=== PATIENT | female | born 1935 | race Caucasian/White ===

== ENCOUNTER 2017-09-18 09:30 | Observation (INO) | payer MEDICARE ==
[2017-09-18 09:31] VITALS: BMI 24.7
--- NOTE | 2017-09-18 09:59 | ED PDOC ---
Arrival/HPI - General Chief Complaint: Trauma Time Seen by Provider: 09/18/17 09:58 Historian: Patient - History of Present Illness Narrative History of Present Illness (Text): 09/18/17 09:59 This 82 year old female, whose past medical history includes diabetes, cholecystectomy and rheumatoid arthritis, presents to the emergency room, accompanied by niece, complaining of generalized weakness, AKBAR, and neck pain x 8 days. Patient stated she tripped and fell down causing her to hit back part of head. Patient feels lack of energy with generalized weakness. Patient denies loc, sob, cp, abdominal pain, or urinary symptoms. Time/Duration: Other (see hpi) Context: Home Past Medical History - Provider Review Nursing Documentation Reviewed: Yes - Infectious Disease Hx of Infectious Diseases: None - Tetanus Immunization Tetanus Immunization: Unknown - Cardiac Hx Cardiac Disorders: No - Pulmonary Hx Respiratory Disorders: No - Neurological Hx Neurological Disorder: No - HEENT Hx HEENT Disorder: No - Renal Hx Renal Disorder: No - Endocrine/Metabolic Hx Endocrine Disorders: Yes Hx Diabetes Mellitus Type 2: Yes - Hematological/Oncological Hx Blood Disorders: No - Integumentary Hx Dermatological Disorder: No - Musculoskeletal/Rheumatological Hx Musculoskeletal Disorders: Yes Hx Falls: Yes - Gastrointestinal Hx Gastrointestinal Disorders: No - Genitourinary/Gynecological Hx Genitourinary Disorders: No - Psychiatric Hx Psychophysiologic Disorder: No Hx Substance Use: No - Surgical History Hx Cholecystectomy: Yes (1 year ago) Hx Musculoskeletal Surgery: Yes (right side hip replacement) Other/Comment: 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 - Anesthesia Hx Anesthesia: Yes Hx Anesthesia Reactions: No Hx Malignant Hyperthermia: No - Suicidal Assessment Feels Threatened In Home Enviroment: No Family/Social History - Physician Review Nursing Documentation Reviewed: Yes Family/Social History: Other (noncontributory) Smoking Status: Never Smoked Hx Alcohol Use: No Hx Substance Use: No Hx Substance Use Treatment: No Allergies/Home Meds Allergies/Adverse Reactions: Allergies Penicillins Adverse Reaction (Verified 09/18/17 09:36) RASH Home Medications: Home Meds Medication Instructions Recorded Confirmed Metformin Hydrochloride [Metformin] 500 mg PO DAILY 03/31/12 09/18/17 Aspirin [Aspirin] 81 mg PO DAILY 04/24/13 09/18/17 Leflunomide [Leflunomide] 20 mg PO DAILY 04/24/13 09/18/17 Review of Systems - Review of Systems Constitutional: Normal. absent: Fatigue, Weight Change, Fevers Eyes: Normal ENT: Normal Respiratory: Normal Cardiovascular: Normal Gastrointestinal: Normal Genitourinary Female: Normal Musculoskeletal: Normal Skin: Normal Neurological: Headache Endocrine: Normal Hemo/Lymphatic: Normal Psychiatric: Normal Physical Exam Vital Signs Temp Pulse Resp BP Pulse Ox 09/18/17 13:45 71 18 141/64 98 09/18/17 11:50 76 18 145/69 98 09/18/17 09:37 97.8 F 80 16 147/71 99 Temperature: Afebrile Blood Pressure: Normal Pulse: Regular Respiratory Rate: Normal Appearance: Positive for: Well-Appearing, Non-Toxic, Comfortable Pain Distress: None - Systems Exam Head: Present: Atraumatic, Normocephalic Pupils: Present: PERRL Extroacular Muscles: Present: EOMI Conjunctiva: Present: Normal Mouth: Present: Moist Mucous Membranes Neck: Present: Normal Range of Motion Respiratory/Chest: Present: Clear to Auscultation, Good Air Exchange. No: Respiratory Distress, Accessory Muscle Use Cardiovascular: Present: Regular Rate and Rhythm, Normal S1, S2. No: Murmurs Abdomen: Present: Normal Bowel Sounds. No: Tenderness, Distention, Peritoneal Signs Back: Present: Normal Inspection Upper Extremity: Present: Normal Inspection. No: Cyanosis, Edema Lower Extremity: Present: Normal Inspection. No: Edema Neurological: Present: GCS=15, CN II-XII Intact, Speech Normal Skin: Present: Warm, Dry, Normal Color. No: Rashes Psychiatric: Present: Alert, Oriented x 3, Normal Insight, Normal Concentration Medical Decision Making ED Course and Treatment: 09/18/17 14:[address] Roth regarding patient c/o generalized weakness, AKBAR and recent fall. Patient had fallen down on the floor, but unsure due to generalized weakness, or mechanical fall. Dr. Zhong agreed with plan for observation. I told him that I had spoke with Dr. Edmondson, who mention that Dr. Decker was neurologist Re-evaluation Time: 14:31 Reassessment Condition: Re-examined, Improving,but remains with symptoms - Lab Interpretations Lab Results: 09/18/17 10:50 09/18/17 09:59 Lab Results 09/18/17 13:18: Urine Color Yellow, Urine Appearance Clear, Urine pH 5.5, Ur Specific [place] >= 1.030, Urine Protein Trace H, Urine Glucose (UA) Negative, Urine Ketones Trace H, Urine Blood Negative, Urine Nitrate Negative, Urine Bilirubin Negative, Urine Urobilinogen 0.2, Ur Leukocyte Esterase Trace H, Urine RBC 0 - 2, Urine WBC 2 - 5, Ur Epithelial Cells 4 - 5, Amorphous Sediment Few, Urine Bacteria Many 09/18/17 10:50: pO2 36, VBG pH 7.35, VBG pCO2 53.0, VBG HCO3 29.3 H, VBG Total CO2 30.9 H, VBG O2 Sat (Calc) 68.1 H, VBG Base Excess 2.5 H, VBG Potassium 4.0, Glucose 137 H, Lactate 1.4, FiO2 21.0, Sodium 141.0, Chloride 108.0 H, Venous Blood Potassium 4.0 09/18/17 10:50: PT 12.2, INR 1.06, APTT 29.5 09/18/17 10:50: WBC 8.2 D, RBC 4.29, Hgb 12.0, Hct 37.0, MCV 86.2, MCH 28.0, MCHC 32.4, RDW 14.3, Plt Count 374, MPV 8.9, Gran % 60.3, Lymph % (Auto) 27.4, [place] % (Auto) 9.9 H, Eos % (Auto) 2.2, Baso % (Auto) 0.2, Gran # 4.92, Lymph # ( Auto) 2.2, [place] # (Auto) 0.8 H, Eos # (Auto) 0.2, Baso # (Auto) 0.02 09/18/17 09:59: Sodium 145, Potassium 4.0, Chloride 109 H, Carbon Dioxide 27, Anion Gap 13, BUN 15, Creatinine 0.6 L, Est GFR ( Amer) > 60, Est GFR ( Non-Af Amer) > 60, Random Glucose 141 H, Calcium 9.8, Total Bilirubin 0.4, AST 32, ALT 36, Alkaline Phosphatase 75, Lactate Dehydrogenase 374, Total Creatine Kinase 29 L, Troponin I < 0.01, NT-Pro-B Natriuret Pep 438, Total Protein 7.3, Albumin 3.7, Globulin 3.6, Albumin/Globulin Ratio 1.0 L I have reviewed the lab results: Yes Interpretation: Abnormal lab values - RAD Interpretation Narrative RAD Interpretations (Text): 09/18/17 11:41 PROCEDURE: CT HEAD WITHOUT CONTRAST. FINDINGS: HEMORRHAGE: No intracranial hemorrhage. BRAIN: No mass effect or edema. Severe chronic microvascular changes are seen VENTRICLES: Mild ventriculomegaly CALVARIUM: Unremarkable. PARANASAL SINUSES: Unremarkable as visualized. No significant inflammatory changes. MASTOID AIR CELLS: Unremarkable as visualized. No inflammatory changes. OTHER FINDINGS: None. IMPRESSION: No acute intracranial findings 09/18/17 12:34 PROCEDURE: CT Cervical Spine without contrast FINDINGS: VERTEBRAE: There is normal alignment of the cervical vertebral bodies. There is straightening of the cervical spine with loss of normal cervical lordosis. Vertebral height is normal. There is no acute fracture or traumatic anterior listhesis. The craniocervical junction is normal. The atlantoaxial joint is normal. DISCS/SPINAL CANAL/NEURAL FORAMINA: There are multilevel degenerative changes with anterior osteophytes, reduced disc heights and multilevel facet arthropathy, worse at C4-5 where there is also focal posterior longitudinal ligament ossification with mild spinal canal stenosis. PARASPINAL SOFT TISSUES: The paraspinous soft tissues are normal. OTHER FINDINGS: No apical pneumothorax. IMPRESSION: No acute fracture or traumatic anterior listhesis. Multilevel degenerative disc disease, worse at C4-5 with mild spinal canal stenosis. Straightening of the cervical spine may be positional or related to muscle spasm. Radiology Orders: 09/18/17 10:00 CHEST PORTABLE [RAD] Stat 09/18/17 10:01 CERVICAL SPINE W/O CONTRAST [CT] Stat HEAD W/O CONTRAST [CT] Stat - EKG Interpretation Interpreted by ED Physician: Yes (NSR @ [address] changes) Type: 12 lead EKG Comparison: No previous EKG avail. - Medication Orders Current Medication Orders: Discontinued Medications Sodium Chloride (Sodium Chloride 0.9%) 500 mls @ 999 mls/hr IV .Q31M STA Stop: 09/18/17 10:30 Last Admin: 09/18/17 11:27 Dose: 999 mls/hr eMAR Start Stop Document 09/18/17 11:27 [email or web address] (Rec: 09/18/17 11:27 [email or web address] [id number]) Intravenous Solution Start Date 09/18/17 Start Time 11:27 End Date 09/18/17 Sodium Chloride (Sodium Chloride 0.9%) 500 mls @ 999 mls/hr IV .Q31M STA Stop: 09/18/17 12:22 Last Admin: 09/18/17 13:31 Dose: 999 mls/hr eMAR Start Stop Document 09/18/17 13:31 [email or web address] (Rec: 09/18/17 13:32 [email or web address] [id number]) Intravenous Solution Start Date 09/18/17 Start Time 13:32 End Date 09/18/17 Disposition/Present on Arrival - Present on Arrival Any Indicators Present on Arrival: No History of DVT/PE: No History of Uncontrolled Diabetes: No Urinary Catheter: No History of Decub. Ulcer: No History Surgical Site Infection Following: None - Disposition Have Diagnosis and Disposition been Completed?: Yes Diagnosis: Generalized weakness, Headache, Fall Disposition: HOSPITALIZED Disposition Time: 14:34 Patient Plan: Observation Patient Problems: Current Active Problems Problem Status Onset Fall Acute Generalized weakness Acute Headache Acute Condition: STABLE Discharge Instructions (ExitCare): Weakness (ED) Referrals: Kobe Edmondson MD [Primary Care Provider] - Follow up with primary Forms: [employer] ([place])
[2017-09-18] MEDS ORDERED: Sodium Chloride 0.9% 500 ML IV STA ×2 (10:00→11:52)
[2017-09-18 11:07] LABS: BASO # 0.02 K/mm3 (0.0-2.0); BASO % 0.2 % (0.0-3.0); EOS # 0.2 (0.0-0.7); EOS % 2.2 % (1.5-5.0); GRAN # 4.92 (1.4-6.5); GRAN % 60.3 % (50.0-68.0); LYMPH # 2.2 (1.2-3.4); LYMPH % 27.4 % (22.0-35.0); MEAN CELL VOLUME 86.2 fl (80.0-105.0); MEAN CORPUSCULAR HGB CONC 32.4 g/dl (31.0-37.0); MEAN PLATELET VOLUME 8.9 fl (7.0-11.0); MONO # 0.8 (0.1-0.6); MONO % 9.9 % (1.0-6.0); RBC 4.29 10^6/uL (3.5-6.1); RED CELL DISTRIBUTION WIDTH 14.3 % (11.5-14.5); WHITE BLOOD COUNT 8.2 10^3/ul (4.5-11.0)
[2017-09-18 11:09] LABS: VENOUS BLOOD GAS BASE EXCESS 2.5 mmol/L (0.0-2.0); VENOUS BLOOD GAS PO2 36 mm/Hg (30-55); VENOUS BLOOD PH 7.35 (7.32-7.43)
--- NOTE | 2017-09-18 11:10 | RAD ---
HISTORY: pre syncope COMPARISON: 04/24/2013. FINDINGS: LUNGS: The lungs are well inflated and clear. PLEURA: No significant pleural effusion identified, no pneumothorax apparent. CARDIOVASCULAR: Normal. OSSEOUS STRUCTURES: No significant abnormalities. VISUALIZED UPPER ABDOMEN: Normal. OTHER FINDINGS: None. IMPRESSION: No active pulmonary disease.
--- NOTE | 2017-09-18 11:18 | CT ---
PROCEDURE: CT HEAD WITHOUT CONTRAST. HISTORY: AKBAR s/p fall COMPARISON: 04/24/2013 TECHNIQUE: Axial computed tomography images were obtained through the head/brain without intravenous contrast. Radiation dose: Total exam DLP = 872 mGy-cm. This CT exam was performed using one or more of the following dose reduction techniques: Automated exposure control, adjustment of the mA and/or kV according to patient size, and/or use of iterative reconstruction technique. FINDINGS: HEMORRHAGE: No intracranial hemorrhage. BRAIN: No mass effect or edema. Severe chronic microvascular changes are seen VENTRICLES: Mild ventriculomegaly CALVARIUM: Unremarkable. PARANASAL SINUSES: Unremarkable as visualized. No significant inflammatory changes. MASTOID AIR CELLS: Unremarkable as visualized. No inflammatory changes. OTHER FINDINGS: None. IMPRESSION: No acute intracranial findings
[2017-09-18 11:21] LABS: ALBUMIN 3.7 g/dL (3.0-4.8); ALT/SGPT 36 U/L (7-56); AST/SGOT 32 U/L (14-36); BLOOD UREA NITROGEN 15 mg/dL (7-21); CALCIUM 9.8 mg/dL (8.4-10.5); GFR AFRICAN-AMERICAN > 60; GFR NON-AFRICAN AMERICAN > 60
[2017-09-18 11:32] LABS: B-TYPE NATRIURETIC PEPTIDE 438 pg/mL (0-450); TROPONIN I < 0.01 ng/mL
[2017-09-18 11:50] LABS: INR 1.06 (0.93-1.08); PARTIAL THROMBOPLASTIN TIME 29.5 Seconds (25.1-36.5); PROTHROMBIN TIME 12.2 SECONDS (9.4-12.5)
--- NOTE | 2017-09-18 12:14 | CT ---
PROCEDURE: CT Cervical Spine without contrast HISTORY: Fall COMPARISON: None available. TECHNIQUE: Axial computed tomography images were obtained of the cervical spine without the use of intravenous contrast. Coronal and sagittal reformatted images were created and reviewed. Radiation dose: Total exam DLP = 382.97 mGy-cm. This CT exam was performed using one or more of the following dose reduction techniques: Automated exposure control, adjustment of the mA and/or kV according to patient size, and/or use of iterative reconstruction technique. FINDINGS: VERTEBRAE: There is normal alignment of the cervical vertebral bodies. There is straightening of the cervical spine with loss of normal cervical lordosis. Vertebral height is normal. There is no acute fracture or traumatic anterior listhesis. The craniocervical junction is normal. The atlantoaxial joint is normal. DISCS/SPINAL CANAL/NEURAL FORAMINA: There are multilevel degenerative changes with anterior osteophytes, reduced disc heights and multilevel facet arthropathy, worse at C4-5 where there is also focal posterior longitudinal ligament ossification with mild spinal canal stenosis. PARASPINAL SOFT TISSUES: The paraspinous soft tissues are normal. OTHER FINDINGS: No apical pneumothorax. IMPRESSION: No acute fracture or traumatic anterior listhesis. Multilevel degenerative disc disease, worse at C4-5 with mild spinal canal stenosis. Straightening of the cervical spine may be positional or related to muscle spasm.
[2017-09-18 13:27] LABS: PH,URINE 5.5 (4.7-8.0); URINE APPEARANCE CLEAR (CLEAR); URINE BILIRUBIN NEGATIVE (NEGATIVE); URINE BLOOD NEGATIVE (NEGATIVE); URINE COLOR YELLOW (YELLOW); URINE GLUCOSE (UA) NEGATIVE (NEGATIVE); URINE LEUKOCYTE ESTERASE TRACE Leu/uL (NEGATIVE); URINE PROTEIN TRACE mg/dL (<30 mg/dL); URINE UROBILINOGEN 0.2 E.U./dL (<1 E.U./dL)
[2017-09-18 13:32] LABS: URINE AMORPHOUS SEDIMENT FEW; URINE BACTERIA MANY (NEG); URINE RBC 0 - 2 /hpf (0-2)
[2017-09-18] MEDS ORDERED: Pneumococcal 23-Valent Vaccine IM ONE (19:30)
[2017-09-18] MEDS ORDERED: Influenza Vaccine 60 mcg/0.5 mL SYR (4YR UP) IM ONE (19:30)
--- NOTE | 2017-09-18 20:51 | CON ---
DATE: HISTORY OF PRESENT ILLNESS: This is an 82-year-old female with past medical history of diabetes, rheumatoid arthritis and status post cholecystectomy. Came with the complaint of generalized weakness, headache, neck pain for 8 days. The patient states that the patient tripped and fell and hit her back of her head and has lack of energy. Came to the hospital with past medical history of diabetes, cholecystectomy, rheumatoid arthritis. ALLERGY: TO PENICILLINS. HOME MEDICATION: Metformin, aspirin. PHYSICAL EXAMINATION: VITAL SIGNS: Blood pressure 47/71. HEENT: Normocephalic, atraumatic. NECK: Supple. NEUROLOGIC: Alert, awake, oriented x3. No aphasia. Cranial nerves II through XII were tested. Pupils reactive. EOM intact. Visual field full. No facial asymmetry. Tongue midline. Motor examination: Moves all the extremity equally. Tone normal. Deep tendon reflexes 1+. Both plantars downgoing. Sensory appears intact. Cerebellar, gait deferred. IMPRESSION: Headache and generalized weakness. Workup in progress and CAT scan of the head was negative. Continue present management. We will followup. CT of the cervical spine was done. No fracture. Multiple degenerative disk disease, C4, C5 and muscle spasms. Continue present management. We will follow up. Jayme Layne MD
[2017-09-18] MEDS: Insulin Reg-LOW-Coverage SC SCH (21:24)
--- NOTE | 2017-09-18 22:01 | CARD ---
APPROVED REPORT EKG Measurement Heart [id number] 190P-4 [id number] <Conclusion> Normal sinus rhythm Minimal voltage criteria for LVH, may be normal variant Borderline ECG
--- NOTE | 2017-09-18 22:54 | CP.PCM.PN ---
Subjective - Date & Time of Evaluation Date of Evaluation: 09/18/17 Time of Evaluation: 22:32 - Subjective Subjective: Patient was seen at bedside. She complained of pain in right side of neck right below mastoid area. Has no other complaints. States that she fell past Monday, has pain in neck since then. No tingling, no numbness in right upper extremity. No pains anywhere else in the body. States that Advil works better with her. Medical record was reviewed. This 82 year old white woman is admitted with generalized weakness, headache, neck pain of 8 days duration. Has PMH of DM II, Chronic headache, osteoarthritis,right hip surgery, cholecystectomy,allergy to penicillin. Objective - Vital Signs/Intake and Output Vital Signs (last 24 hours): Temp Pulse Resp BP Pulse Ox 97.6 F 60 18 151/66 H 95 09/18/17 20:51 09/18/17 20:51 09/18/17 20:51 09/18/17 20:51 09/18/17 17:18 Intake and Output: 09/18/17 09/19/17 18:59 06:59 Intake Total 540 Balance 540 - Medications Medications: Current Medications Aspirin (Ecotrin) 81 mg PO DAILY [facility] Last Admin: 09/18/17 17:42 Dose: 81 mg Insulin Human Regular (Humulin R Low) 0 units SC ACHS TASHIA PRN Reason: Protocol Last Admin: 09/18/17 21:24 Dose: Not Given - Labs Labs: PT 12.2 SECONDS (9.4-12.5) 09/18/17 10:50 INR 1.06 (0.93-1.08) 09/18/17 10:50 APTT 29.5 Seconds (25.1-36.5) 09/18/17 10:50 Most Recent Lab Values WBC 8.2 10^3/ul (4.5-11.0) D 09/18/17 10:50 RBC 4.29 10^6/uL (3.5-6.1) 09/18/17 10:50 Hgb 12.0 g/dL (12.0-16.0) 09/18/17 10:50 Hct 37.0 % (36.0-48.0) 09/18/17 10:50 MCV 86.2 fl (80.0-105.0) 09/18/17 10:50 MCH 28.0 pg (25.0-35.0) 09/18/17 10:50 MCHC 32.4 g/dl (31.0-37.0) 09/18/17 10:50 RDW 14.3 % (11.5-14.5) 09/18/17 10:50 Plt Count 374 10^3/uL (120.0-450.0) 09/18/17 10:50 MPV 8.9 fl (7.0-11.0) 09/18/17 10:50 Gran % 60.3 % (50.0-68.0) 09/18/17 10:50 Lymph % (Auto) 27.4 % (22.0-35.0) 09/18/17 10:50 [place] % (Auto) 9.9 % (1.0-6.0) H 09/18/17 10:50 Eos % (Auto) 2.2 % (1.5-5.0) 09/18/17 10:50 Baso % (Auto) 0.2 % (0.0-3.0) 09/18/17 10:50 Gran # 4.92 (1.4-6.5) 09/18/17 10:50 Lymph # (Auto) 2.2 (1.2-3.4) 09/18/17 10:50 [place] # (Auto) 0.8 (0.1-0.6) H 09/18/17 10:50 Eos # (Auto) 0.2 (0.0-0.7) 09/18/17 10:50 Baso # (Auto) 0.02 K/mm3 (0.0-2.0) 09/18/17 10:50 PT 12.2 SECONDS (9.4-12.5) 09/18/17 10:50 INR 1.06 (0.93-1.08) 09/18/17 10:50 APTT 29.5 Seconds (25.1-36.5) 09/18/17 10:50 pO2 36 mm/Hg (30-55) 09/18/17 10:50 VBG pH 7.35 (7.32-7.43) 09/18/17 10:50 VBG pCO2 53.0 (40-60) 09/18/17 10:50 VBG HCO3 29.3 mmol/l (21-28) H 09/18/17 10:50 VBG Total CO2 30.9 mmol.L (22-28) H 09/18/17 10:50 VBG O2 Sat (Calc) 68.1 % (40-65) H 09/18/17 10:50 VBG Base Excess 2.5 mmol/L (0.0-2.0) H 09/18/17 10:50 VBG Potassium 4.0 mmol/L (3.6-5.2) 09/18/17 10:50 Sodium 141.0 mmol/L (132-148) 09/18/17 10:50 Chloride 108.0 mmol/L (98-107) H 09/18/17 10:50 Glucose 137 mg/dl (65-105) H 09/18/17 10:50 Lactate 1.4 mmol/L (0.7-2.1) 09/18/17 10:50 FiO2 21.0 % 09/18/17 10:50 Sodium 145 mmol/L (132-148) 09/18/17 09:59 Potassium 4.0 mmol/L (3.6-5.0) 09/18/17 09:59 Chloride 109 mmol/L (98-107) H 09/18/17 09:59 Carbon Dioxide 27 mmol/L (21-33) 09/18/17 09:59 Anion Gap 13 (10-20) 09/18/17 09:59 BUN 15 mg/dL (7-21) 09/18/17 09:59 Creatinine 0.6 mg/dl (0.7-1.2) L 09/18/17 09:59 Est GFR ( Amer) > 60 09/18/17 09:59 Est GFR (Non-Af Amer) > 60 09/18/17 09:59 POC Glucose (mg/dL) 147 mg/dL (65-110) H 09/18/17 20:44 Random Glucose 141 mg/dL (70-110) H 09/18/17 09:59 Calcium 9.8 mg/dL (8.4-10.5) 09/18/17 09:59 Total Bilirubin 0.4 mg/dL (0.2-1.3) 09/18/17 09:59 AST 32 U/L (14-36) 09/18/17 09:59 ALT 36 U/L (7-56) 09/18/17 09:59 Alkaline Phosphatase 75 U/L (38-126) 09/18/17 09:59 Lactate Dehydrogenase 374 U/L (333-699) 09/18/17 09:59 Total Creatine Kinase 29 U/L (35-230) L 09/18/17 09:59 Troponin I < 0.01 ng/mL 09/18/17 09:59 NT-Pro-B Natriuret Pep 438 pg/mL (0-450) 09/18/17 09:59 Total Protein 7.3 g/dL (5.8-8.3) 09/18/17 09:59 Albumin 3.7 g/dL (3.0-4.8) 09/18/17 09:59 Globulin 3.6 gm/dL 09/18/17 09:59 Albumin/Globulin Ratio 1.0 (1.1-1.8) L 09/18/17 09:59 Venous Blood Potassium 4.0 mmol/L (3.6-5.2) 09/18/17 10:50 Urine Color Yellow (YELLOW) 09/18/17 13:18 Urine Appearance Clear (CLEAR) 09/18/17 13:18 Urine pH 5.5 (4.7-8.0) 09/18/17 13:18 Ur Specific [place] >= 1.030 (1.005-1.035) 09/18/17 13:18 Urine Protein Trace mg/dL (<30 mg/dL) H 09/18/17 13:18 Urine Glucose (UA) Negative mg/dL (NEGATIVE) 09/18/17 13:18 Urine Ketones Trace mg/dL (NEGATIVE) H 09/18/17 13:18 Urine Blood Negative (NEGATIVE) 09/18/17 13:18 Urine Nitrate Negative (NEGATIVE) 09/18/17 13:18 Urine Bilirubin Negative (NEGATIVE) 09/18/17 13:18 Urine Urobilinogen 0.2 E.U./dL (<1 E.U./dL) 09/18/17 13:18 Ur Leukocyte Esterase Trace Piotr/uL (NEGATIVE) H 09/18/17 13:18 Urine RBC 0 - 2 /hpf (0-2) 03/26/18 13:18 Urine WBC 2 - 5 /hpf (0-6) 09/18/17 13:18 Ur Epithelial Cells 4 - 5 /hpf (0-5) 09/18/17 13:18 Amorphous Sediment Few 09/18/17 13:18 Urine Bacteria Many (NEG) 09/18/17 13:18 - Constitutional Appears: Well, No Acute Distress - Head Exam Head Exam: ATRAUMATIC, NORMAL INSPECTION, NORMOCEPHALIC - Eye Exam Eye Exam: Normal appearance - ENT Exam ENT Exam: Normal External Ear Exam - Neck Exam Neck Exam: Normal Inspection Additional comments: Minimal tenderness noted in right side of neck. - Respiratory Exam Respiratory Exam: NORMAL BREATHING PATTERN - Cardiovascular Exam Cardiovascular Exam: absent: JVD - GI/Abdominal Exam GI & Abdominal Exam: absent: Distended - Rectal Exam Rectal Exam: Deferred - Exam Additional comments: Deferred. - Extremities Exam Extremities Exam: Normal Inspection - Back Exam Back Exam: NORMAL INSPECTION - Neurological Exam Neurological Exam: Alert, Awake, Oriented x3 - Psychiatric Exam Psychiatric exam: Normal Affect, Normal Mood - Skin Skin Exam: Warm Assessment and Plan - Assessment and Plan (Free Text) Assessment: Right neck pain. S/P fall. Generalized weakness. Headache. DM II. OA. Plan: Tylenol 650 mg PO x 1. Ibuprofen prn. Continue present management. May need MRI of neck.
[2017-09-19] MEDS ORDERED: Oxycodone/Acetaminophen 5/325 mg Tab PO ONE (07:21)
[2017-09-19] MEDS ORDERED: Oxycodone/Acetaminophen 5/325 mg Tab PO PRN (07:22)
[2017-09-19 07:59] VITALS: BP 178/72; PULSE 79; RESP 18; TEMP 97.3; O2SAT 97
[2017-09-19] MEDS: Insulin Reg-LOW-Coverage SC SCH (09:04)
--- NOTE | 2017-09-19 20:26 | HP ---
DATE OF EXAM: 09/19/2017 CHIEF COMPLAINT AND HISTORY OF PRESENT ILLNESS: This is an 82-year-old female who is coming to the hospital with complaints of neck pain. The patient states that she had a fall about two weeks ago and started having neck pain since then. The patient states that she had tripped and hit her head prior to coming to the ER. She states feeling weak. She denies any chest pain. No loss of consciousness. No abdominal pain, no back pain. No dysuria or frequency. No nocturia. She has no weakness in the arm or the legs. She does have a history of rheumatoid arthritis and has been taking leflunomide. She has a history of diabetes as well. REVIEW OF SYSTEMS: All other review of symptoms are within normal limits except what is mentioned. PAST MEDICAL HISTORY 1. Diabetes type 2. 2. Rheumatoid arthritis. 3. Right foot drop. PAST SURGICAL HISTORY 1. Right hip replacement. 2. Cholecystectomy. ALLERGIES: PENICILLIN. HOME MEDICATIONS: Metformin, aspirin, leflunomide. SOCIAL HISTORY: She does not smoke, drink or use drugs. FAMILY HISTORY: Noncontributory. PHYSICAL EXAMINATION VITAL SIGNS: Temperature is 97.3, pulse is 79, blood pressure is 178/72, respirations 18, O2 saturation 97%. Height is 5 feet, weight is 130 pounds, BMI is 25. GENERAL: The patient lying in bed, uncomfortable, and in no acute distress. HEENT: Atraumatic and normocephalic. Anicteric sclerae. Moist mucosa. [place] conjunctivae. No oral lesions. NECK: She has decreased range of motion because of pain. CARDIOVASCULAR: S1 and S2 regular. No murmur, rubs, or gallop. LUNGS: Clear to auscultation bilaterally. No wheezes, rales, or rhonchi. ABDOMEN: Bowel sounds are positive. Soft, nontender and nondistended. No hepatosplenomegaly. No rebound and no guarding. EXTREMITIES: No cyanosis, clubbing, or edema. NEUROLOGIC: No facial asymmetry. Tongue is midline. No uvula deviation. Power is 5/5 upper extremity and lower extremity. Sensation intact in upper extremity and lower extremity. PSYCHIATRIC: She is awake, alert and oriented x3. No anxiety or depression. She has normal affect. GENITOURINARY: No CVA tenderness. VASCULAR: 2+ pulses in the carotid pulses and pedal pulses. SKIN: No erythema or nodules. SPINE: Shows normal curvature. LABORATORY DATA: White count of 8.2, hemoglobin 12. Rest of the labs have been reviewed. INR is 1.06. VBG shows a saturation of 68. Chemistry shows a sodium 145, potassium 4, troponin 0.01. Urine shows nitrites are negative, esterase are negative. Cervical spine CT done shows multilevel degenerative disk disease with spurs at C4-5 with spinal canal stenosis. Chest x-ray done shows no active pulmonary disease. CT of the head shows no acute intracranial findings. ASSESSMENT 1. Neck pain secondary to cervical spinal stenosis. 2. Degenerative joint disease of cervical spine. 3. Rheumatoid arthritis. 4. Diabetes type 2. PLAN: The patient was brought in as an observation. The patient was seen by Dr. Layne. The patient states that her pain medications, Toradol and tramadol, did not help her symptoms. I have added Percocet; she does understand that Percocet is much stronger as a narcotic and it has addicting potential. She also understands they can cause sedation and cognitive changes as well. She does not want to try it. She is having better pain control. She will be discharged to home to follow up with Dr. Chaudhary. Condition is stable. Activities, increase as tolerated. Discharge home. Chapincito Zhong MD
== END 2017-09-19 11:36 | disposition home or self-care (01) ==
LOC: ED 09:30 → ERH 14:20 → 3RNO 17:12
PROVIDERS: ADMIT Internal Medicine Nephrology; ATTEND Internal Medicine Nephrology
DX: M48.02 Spinal stenosis, cervical region (principal); M47.812 Spondylosis without myelopathy or radiculopathy, cervical region; W01.0XXA Fall on same level from slipping, tripping and stumbling without subsequent striking against object, initial encounter; E11.9 Type 2 diabetes mellitus without complications; M06.9 Rheumatoid arthritis, unspecified; Z79.82 Long term (current) use of aspirin; Z88.0 Allergy status to penicillin; Z90.49 Acquired absence of other specified parts of digestive tract; Z96.641 Presence of right artificial hip joint; M21.371 Foot drop, right foot
CPT/HCPCS: 70450; 71045; 72125; 80053; 81001; 82550; 82803; 82948; 83615; 83880; 84484; 85025; 85610; 85730; 87040; 87086; 93005; 96374; 97116; 97161; 99285; G0378; G8978; G8979; G8980; J1885; J7040

== ENCOUNTER 2018-06-28 13:49 | Emergency (ER) | payer MEDICARE ==
[2018-06-28 13:50] VITALS: BMI 24.7
[2018-06-28 14:39] VITALS: RESP 18
--- NOTE | 2018-06-28 14:55 | ED PDOC ---
Arrival/HPI - General Chief Complaint: Dizziness/Lightheaded Time Seen by Provider: 06/28/18 14:45 Historian: Patient, Family - History of Present Illness Narrative History of Present Illness (Text): 06/28/18 14:54 83 year old female with past medical history of rheumatoid arthritis, diabetes, and cholecystectomy presents to the emergency department complaining of an episode of bilateral/lower extremity weakness occurring yesterday. Patient informs similar intermittent symptoms in the past which spontaneously resolved. Niece states that patient was walking yesterday when her legs began to "wobble," which soon resolved. Patient reports chronic intermittent dizziness and frontal headache but denies taking any medication. Patient denies any discomfort in the legs. Patient denies any fevers, chills, chest pain, shortness of breath, dyspnea on exertion, cough, abdominal pain, nausea, vomiting, diarrhea, back pain, neck pain, or any other complaints. PMD: Dr. Edmondson Time/Duration: Other (yesterday) Symptom Onset: Gradual Symptom Course: Resolved Activities at Onset: Light Context: Home Past Medical History - Provider Review Nursing Documentation Reviewed: Yes - Infectious Disease Hx of Infectious Diseases: None - Tetanus Immunization Tetanus Immunization: Unknown - Cardiac Hx Cardiac Disorders: No - Pulmonary Hx Respiratory Disorders: No - Neurological Hx Neurological Disorder: No Hx Dementia: Yes - HEENT Hx HEENT Disorder: No Hx Cataracts: Yes - Renal Hx Renal Disorder: No - Endocrine/Metabolic Hx Diabetes Mellitus Type 2: Yes - Hematological/Oncological Hx Blood Disorders: No - Integumentary Hx Dermatological Disorder: No - Musculoskeletal/Rheumatological Hx Arthritis: Yes (RA) - Gastrointestinal Hx Gastrointestinal Disorders: No - Genitourinary/Gynecological Hx Genitourinary Disorders: No - Psychiatric Hx Psychophysiologic Disorder: No Hx Substance Use: No - Surgical History Hx Cholecystectomy: Yes (1 year ago) Hx Musculoskeletal Surgery: Yes (right side hip replacement) Other/Comment: 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 - Anesthesia Hx Anesthesia: Yes Hx Anesthesia Reactions: No Hx Malignant Hyperthermia: No - Suicidal Assessment Feels Threatened In Home Enviroment: No Family/Social History - Physician Review Nursing Documentation Reviewed: Yes Family/Social History: Unknown Family HX Smoking Status: Never Smoked Hx Alcohol Use: No Hx Substance Use: No Hx Substance Use Treatment: No Allergies/Home Meds Allergies/Adverse Reactions: Allergies Penicillins Adverse Reaction (Verified 09/18/17 09:36) RASH Home Medications: Home Meds Medication Instructions Recorded Confirmed Metformin Hydrochloride [Metformin] 500 mg PO DAILY 03/31/12 09/18/17 Aspirin 81 mg PO DAILY 04/24/13 09/18/17 Leflunomide 20 mg PO DAILY 04/24/13 09/18/17 Review of Systems - Physician Review All systems were reviewed & negative as marked: Yes - Review of Systems Respiratory: absent: SOB Cardiovascular: absent: Chest Pain Musculoskeletal: Other (weakness in legs ) Neurological: Headache (frontal headache ), Dizziness Physical Exam - Physical Exam Narrative Physical Exam (Text): 06/28/18 15:03 Constitutional: No acute distress. Head: Normocephalic. Atraumatic. Eyes: PERRL. ENT: Moist mucous membranes. Neck: Supple. Cardiovascular: Regular rate. Chest: No tenderness. Respiratory: Clear to auscultation bilaterally. GI: Soft. Nontender. Nondistended. Back: No CVA tenderness. Musculoskeletal: No tenderness or swelling of extremities, motor strength 5/5 bilaterally Skin: No rash. Neurologic: Alert, no focal deficit. Normal finger to nose, normal heel to plata Vital Signs Reviewed: Yes Vital Signs Temp Pulse Resp BP Pulse Ox 06/28/18 13:50 98.1 F 78 18 200/81 H 97 Temperature: Afebrile Blood Pressure: Hypertensive Pulse: Regular Respiratory Rate: Normal Appearance: Positive for: Well-Appearing, Non-Toxic, Comfortable Pain Distress: None Mental Status: Positive for: Alert and Oriented X 3 Medical Decision Making ED Course and Treatment: 06/28/18 15:04 Impression: 83 year old female presents to emergency department complaining of an episode of bilateral lower leg weakness that occurred yesterday. Plan: -- CT Head -- Labs -- Reassess and disposition Prior Visits: Notes and results from previous visits were reviewed. Progress Notes: EKG: Ordered, reviewed, and independently interpreted the EKG. Rate : 75 BPM Rhythm : NSR Interpretation : No ST-segment elevations 06/28/18 16:54 IMPRESSION: No acute intracranial abnormality. 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 Mild age-related global parenchymal volume loss. Stable moderate ventricular dilatation out of proportion to the sulcal prominence, normal pressure hydrocephalus is a consideration. Clinical follow- up is advised. At time of discharge patient states she feels better. No neurological symptoms. No chest pain or dyspnea. Will discharge, f/u PMD, instructed to return to ED or any chest pain, dyspnea, vomiting, headache, motor weakness, etc. - Scribe Statement The provider has reviewed the documentation as recorded by the Scribe Bahman torres with Raj All medical record entries made by the Scribe were at my direction and personally dictated by me. I have reviewed the chart and agree that the record accurately reflects my personal performance of the history, physical exam, medical decision making, and the department course for this patient. I have also personally directed, reviewed, and agree with the discharge instructions and disposition. Disposition/Present on Arrival - Present on Arrival Any Indicators Present on Arrival: No History of DVT/PE: No History of Uncontrolled Diabetes: No Urinary Catheter: No History of Decub. Ulcer: No History Surgical Site Infection Following: None - Disposition Have Diagnosis and Disposition been Completed?: Yes Diagnosis: Headache Disposition: HOME/ ROUTINE Disposition Time: 16:54 Patient Plan: Discharge Patient Problems: Current Active Problems Problem Status Onset Headache Acute Condition: STABLE Discharge Instructions (ExitCare): High Blood Pressure in Adults, Headache, Adult (DC) Forms: [employer] (Tanzanian)
[2018-06-28 15:45] LABS: BASO # 0.02 K/mm3 (0.0-2.0); BASO % 0.3 % (0.0-3.0); EOS % 0.5 % (1.5-5.0); GRAN # 4.73 (1.4-6.5); GRAN % 74.4 % (50.0-68.0); LYMPH # 1.1 (1.2-3.4); LYMPH % 16.9 % (22.0-35.0); MEAN CELL VOLUME 83.9 fl (80.0-105.0); MEAN CORPUSCULAR HEMOGLOBIN 26.8 pg (25.0-35.0); MEAN PLATELET VOLUME 8.9 fl (7.0-11.0); MONO # 0.5 (0.1-0.6); MONO % 7.9 % (1.0-6.0); RBC 4.47 10^6/uL (3.5-6.1); RED CELL DISTRIBUTION WIDTH 15.3 % (11.5-14.5); WHITE BLOOD COUNT 6.4 10^3/uL (4.5-11.0)
[2018-06-28 15:52] LABS: ALB/GLOB RATIO 1.1 (1.1-1.8); ALBUMIN 4.1 g/dL (3.0-4.8); ALT/SGPT 23 U/L (7-56); AST/SGOT 30 U/L (14-36); BLOOD UREA NITROGEN 19 mg/dL (7-21); CALCIUM 9.3 mg/dL (8.4-10.5); GFR NON-AFRICAN AMERICAN > 60
--- NOTE | 2018-06-28 16:48 | CT ---
Date of service: 06/28/2018 PROCEDURE: CT HEAD WITHOUT CONTRAST. HISTORY: HTN, headache COMPARISON: 09/18/2017. TECHNIQUE: Axial computed tomography images were obtained through the head/brain without intravenous contrast. Radiation dose: Total exam DLP = 827.61 mGy-cm. This CT exam was performed using one or more of the following dose reduction techniques: Automated exposure control, adjustment of the mA and/or kV according to patient size, and/or use of iterative reconstruction technique. FINDINGS: HEMORRHAGE: No intracranial hemorrhage. BRAIN: There are moderate chronic microangiopathic changes. 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 There is no mass, mass effect or abnormal extra-axial fluid collection. There is no territorial infarction. The midline sagittal structures are normal. There are coarse atherosclerotic calcifications in the cavernous carotid arteries. VENTRICLES: There is mild age-related global parenchymal volume loss and proportionate enlargement of the cortical sulci. There is moderate ventricular dilatation slightly out of proportion to the sulcal prominence. CALVARIUM: There is no calvarial fracture or extracranial soft tissue swelling. PARANASAL SINUSES: Predominantly clear. MASTOID AIR CELLS: Predominantly clear. OTHER FINDINGS: None. IMPRESSION: No acute intracranial abnormality. 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 Mild age-related global parenchymal volume loss. Stable moderate ventricular dilatation out of proportion to the sulcal prominence, normal pressure hydrocephalus is a consideration. Clinical follow-up is advised.
[2018-06-28 17:12] VITALS: BP 200/88; PULSE 76; TEMP 97.6; O2SAT 98
--- NOTE | 2018-06-29 09:56 | CARD ---
APPROVED REPORT Date of service: 06/28/2018 EKG Measurement Heart [id number] <Conclusion> Normal sinus rhythm ST abnormality, possible digitalis effect Abnormal ECG
== END 2018-06-28 17:15 | disposition home or self-care (01) ==
LOC: ED 13:49
DX: R51 Headache (principal); E11.9 Type 2 diabetes mellitus without complications; F03.90 Unspecified dementia, unspecified severity, without behavioral disturbance, psychotic disturbance, mood disturbance, and anxiety; M06.9 Rheumatoid arthritis, unspecified

== ENCOUNTER 2018-08-06 16:52 | Emergency (ER) | payer MEDICARE ==
[2018-08-06 16:52] VITALS: BMI 24.7
[2018-08-06] MEDS ORDERED: TDAP Vaccine 0.5 mL Syr IM ONE (17:14)
[2018-08-06] MEDS ORDERED: Lidocaine/Epi 1% 1:100000 20 ML IJ STA (17:17)
[2018-08-06 17:27] VITALS: BP 179/72; PULSE 73; RESP 18; TEMP 97.3; O2SAT 99
--- NOTE | 2018-08-06 17:28 | ED PDOC ---
Arrival/HPI - General Chief Complaint: Trauma Time Seen by Provider: 08/06/18 16:56 Historian: Patient - History of Present Illness Narrative History of Present Illness (Text): 08/06/18 16:56 Patient is an 83 year old female, with past medical history of arthritis, diabetes, and cholecystectomy, who presents to the emergency department s/p mechanical fall. Patient informs she tripped and fell at [employer], hitting her head. Patient does not take any blood thinners and takes Advil for arthritis. Patient denies any loss of consciousness, headache, chest pain, shortness of breath, dyspnea on exertion, cough, abdominal pain, nausea, vomiting, diarrhea, back pain, neck pain, or any other complaints. Symptom Onset: Sudden Symptom Course: Unchanged Activities at Onset: Light Context: Tripped Past Medical History - Provider Review Nursing Documentation Reviewed: Yes - Infectious Disease Hx of Infectious Diseases: None - Tetanus Immunization Tetanus Immunization: Unknown - Cardiac Hx Cardiac Disorders: No - Pulmonary Hx Respiratory Disorders: No - Neurological Hx Neurological Disorder: No - HEENT Hx HEENT Disorder: Yes Hx Cataracts: Yes (Hard of hearing.) - Renal Hx Renal Disorder: No - Endocrine/Metabolic Hx Endocrine Disorders: Yes Hx Diabetes Mellitus Type 2: Yes - Hematological/Oncological Hx Blood Disorders: No - Integumentary Hx Dermatological Disorder: No - Musculoskeletal/Rheumatological Hx Musculoskeletal Disorders: Yes Hx Arthritis: Yes (RA) - Gastrointestinal Hx Gastrointestinal Disorders: No - Genitourinary/Gynecological Hx Genitourinary Disorders: No - Psychiatric Hx Psychophysiologic Disorder: No Hx Substance Use: No - Surgical History Hx Cholecystectomy: Yes (1 year ago) Hx Musculoskeletal Surgery: Yes (right side hip replacement) Other/Comment: 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 - Anesthesia Hx Anesthesia: Yes Hx Anesthesia Reactions: No Hx Malignant Hyperthermia: No - Suicidal Assessment Feels Threatened In Home Enviroment: No Family/Social History - Physician Review Nursing Documentation Reviewed: Yes Family/Social History: No Known Family HX Smoking Status: Never Smoked Hx Alcohol Use: No Hx Substance Use: No Hx Substance Use Treatment: No Allergies/Home Meds Allergies/Adverse Reactions: Allergies Penicillins Adverse Reaction (Verified 09/18/17 09:36) RASH Home Medications: Home Meds Medication Instructions Recorded Confirmed RX: Metformin Hydrochloride 500 mg PO DAILY 03/31/12 09/18/17 [Metformin] RX: Aspirin 81 mg PO DAILY 04/24/13 09/18/17 RX: Leflunomide 20 mg PO DAILY 04/24/13 09/18/17 Review of Systems - Physician Review All systems were reviewed & negative as marked: Yes - Review of Systems Respiratory: absent: SOB, Cough Cardiovascular: absent: Chest Pain, STEELE Gastrointestinal: absent: Abdominal Pain, Diarrhea, Nausea, Vomiting Genitourinary Female: absent: Dysuria Musculoskeletal: absent: Back Pain, Neck Pain Neurological: absent: Headache Physical Exam Vital Signs Reviewed: Yes Vital Signs Temp Pulse Resp BP Pulse Ox 08/06/18 17:21 97.3 F L 73 18 179/72 H 99 Temperature: Afebrile Blood Pressure: Hypertensive Pulse: Regular Respiratory Rate: Normal Appearance: Positive for: Well-Appearing, Non-Toxic, Comfortable Pain Distress: None Mental Status: Positive for: Alert and Oriented X 3 - Systems Exam Head: Present: Normocephalic, Contusion (hematoma ) Pupils: Present: PERRL Extroacular Muscles: Present: EOMI Conjunctiva: Present: Normal Mouth: Present: Moist Mucous Membranes Nose (External): Present: Contusion (hematoma), Laceration (skin loss) Neck: Present: Normal Range of Motion Respiratory/Chest: Present: Clear to Auscultation, Good Air Exchange. No: Respiratory Distress, Accessory Muscle Use Cardiovascular: Present: Regular Rate and Rhythm, Normal S1, S2. No: Murmurs Abdomen: No: Tenderness, Distention, Peritoneal Signs Back: Present: Normal Inspection Upper Extremity: Present: Normal Inspection. No: Cyanosis, Edema Lower Extremity: Present: Other (hematoma on both knees ). No: Edema Neurological: Present: GCS=15, CN II-XII Intact, Speech Normal Skin: Present: Warm, Dry, Normal Color. No: Rashes Psychiatric: Present: Alert, Oriented x 3, Normal Insight, Normal Concentration Medical Decision Making ED Course and Treatment: 08/06/18 16:56 Impression: Patient is an 83 year old female who presents to the emergency department s/p mechanical fall at [facility]. Plan: -- Bilateral Knee X-Ray -- Lidocaine -- Boostrix Vaccine -- Reassess and Disposition Progress: 08/06/18 18:49 PROCEDURE: LACERATION REPAIR Performed by the emergency provider Description: "clean wound edges","no foreign bodies" Distal CMS: Normal. No deficits. Neurovascularly intact. Anesthesia: Lidocaine 1% Preparation: The wound was cleaned with NS and Betadyne. The area was prepped and draped in the usual sterile fashion. Exploration: The wound was explored and no foreign bodies were found. Procedure: The wound was closed with nylon. Post-Procedure: Good closure and hemostasis. The patient tolerated the procedure well and there were no complications. CSM remains intact. Post procedure dressing applied. 08/06/18 21:04 3 sutures placed. wound irrigated clearned. imaging neg. stable for dc. - RAD Interpretation Radiology Orders: 08/06/18 17:13 HEAD W/O CONTRAST [CT] Stat MAXILLOFACIAL W/O CONTRAST [CT] Stat KNEES BILATERAL [RAD] Stat - Medication Orders Current Medication Orders: Discontinued Medications Lidocaine/Epinephrine (Lidocaine/Epi 1% 1:900717 20 Ml) 5 ml IJ STAT STA Stop: 08/06/18 17:18 Tetanus/Reduced Diphtheria/Acell Pertussis (Boostrix Vaccine Inj) 0.5 ml IM .ONCE ONE Stop: 08/06/18 17:15 - Scribe Statement The provider has reviewed the documentation as recorded by the Scribe Cristian Santo All medical record entries made by the Scribe were at my direction and personally dictated by me. I have reviewed the chart and agree that the record accurately reflects my personal performance of the history, physical exam, medical decision making, and the department course for this patient. I have also personally directed, reviewed, and agree with the discharge instructions and disposition. Disposition/Present on Arrival - Present on Arrival Any Indicators Present on Arrival: No History of DVT/PE: No History of Uncontrolled Diabetes: No Urinary Catheter: No History of Decub. Ulcer: No History Surgical Site Infection Following: None - Disposition Have Diagnosis and Disposition been Completed?: Yes Diagnosis: Fall, Laceration Disposition: HOME/ ROUTINE Disposition Time: 17:00 Condition: STABLE Discharge Instructions (ExitCare): Laceration Repair, Preventing Falls in the Older Adult, Closed Head Injury Additional Instructions: please discuss your CT findings with the neurologist return to any er with worsening symptoms or concerns. return in 5 days for removal of sutures or sooner with any concern. Referrals: Manan Delcid MD [Staff Provider] - Follow up with primary David Kimball MD [Primary Care Provider] - Follow up with primary Forms: [employer] (Polish)
[2018-08-06] MEDS ORDERED: Lidocaine 1% Inj (20ml) IJ STA (17:50)
--- NOTE | 2018-08-06 18:15 | CT ---
Date of service: 08/06/2018 PROCEDURE: CT HEAD WITHOUT CONTRAST. HISTORY: trauma COMPARISON: Unenhanced head CT 06/28/2018. TECHNIQUE: Axial computed tomography images were obtained through the head/brain without intravenous contrast. Radiation dose: Total exam DLP = 874.15 mGy-cm. This CT exam was performed using one or more of the following dose reduction techniques: Automated exposure control, adjustment of the mA and/or kV according to patient size, and/or use of iterative reconstruction technique. FINDINGS: HEMORRHAGE: No intracranial hemorrhage. BRAIN: Chronic lacune right thalamus reiterated. No mass effect. Preserved corticomedullary differentiation and chronic microangiopathy with limited diffuse cerebral atrophy evident. Posterior fossa contents stable. No suspicious extra-axial collection appreciated. VENTRICLES: Normal pressure hydrocephalus pattern reiterated. CALVARIUM: No destructive bony lesion or displaced fracture identified including through the skullbase. Limited right frontal scalp edema is identified. PARANASAL SINUSES: Unremarkable as visualized. No significant inflammatory changes. MASTOID AIR CELLS: Unremarkable as visualized. No inflammatory changes. OTHER FINDINGS: None. IMPRESSION: 1. No intracranial hemorrhage or fracture appreciated. Limited right frontal scalp edema identified 2. NPH pattern reiterated. 3. Stable age related neuro degenerative changes. 4. Chronic lacune right thalamus again evident.
--- NOTE | 2018-08-06 18:18 | CT ---
Date of service: 08/06/2018 PROCEDURE: CT MAXILLOFACIAL BONES WITHOUT CONTRAST HISTORY: trauma COMPARISON: None available. TECHNIQUE: Contiguous axial CT images of the maxillofacial bones were obtained. Coronal and sagittal reformats were generated. Radiation dose: Total exam DLP = 802.63 mGy-cm. This CT exam was performed using one or more of the following dose reduction techniques: Automated exposure control, adjustment of the mA and/or kV according to patient size, and/or use of iterative reconstruction technique. FINDINGS: NASAL BONES: Unremarkable. ORBITS: Unremarkable. PARANASAL SINUSES/ MASTOIDS: Right maxillary sinus cyst or polyp noted. MAXILLA: Unremarkable. MANDIBLE/ TEMPOROMANDIBULAR JOINTS: Unremarkable. SKULL BASE: Unremarkable. TEMPORAL BONES: Middle ears and mastoid grossly unremarkable. OTHER FINDINGS: Left foot mid bony nasal septal deviation. Right frontal scalp soft tissue edema identified. IMPRESSION: Limited right frontal scalp edema noted. No facial bone fracture identified. Right maxillary sinus polyp persist noted.
--- NOTE | 2018-08-07 10:19 | RAD ---
Date of service: 08/06/2018 PROCEDURE: Bilateral Knee Radiographs. HISTORY: trauma COMPARISON: None. FINDINGS: BONES: Right Knee: No fracture. Left Knee: No fracture. JOINTS: Right Knee: Tricompartmental osteoarthritis. No articular erosion. Left knee: Tricompartmental osteoarthritis. No articular erosion. SOFT TISSUES: Right Knee: Normal. Left Knee: Normal. JOINT EFFUSION: Right Knee: None. Left Knee: None. OTHER FINDINGS: None. IMPRESSION: No acute fracture. Bilateral tricompartmental osteoarthritis.
== END 2018-08-06 19:35 | disposition home or self-care (01) ==
LOC: ED 16:52
DX: S01.21XA Laceration without foreign body of nose, initial encounter (principal); W01.0XXA Fall on same level from slipping, tripping and stumbling without subsequent striking against object, initial encounter; Y92.512 Supermarket, store or market as the place of occurrence of the external cause; Z23 Encounter for immunization; E11.9 Type 2 diabetes mellitus without complications; M19.90 Unspecified osteoarthritis, unspecified site

== ENCOUNTER 2018-08-25 16:26 | Inpatient (IN) | payer MEDICARE, OTHER ==
[2018-08-25 16:27] VITALS: BMI 24.7
--- NOTE | 2018-08-25 17:13 | ED PDOC ---
Arrival/HPI - General Chief Complaint: Trauma Time Seen by Provider: 08/25/18 16:30 Historian: Patient - History of Present Illness Narrative History of Present Illness (Text): 08/25/18 16:58 83yo female with pmhx of diabetes bib EMS for b/l knee pain s/p trauma last night. 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 Admits to hitting her head when she fell. the niece by the bedside states patient usually ambulate and does things for herself, but she has not been able to stand or ambulate secondary to her knee pain. States it became worse after the trauma last night. Patient states she is not sure if she had LOC. Denies headache, dizziness, focal weakness, back pain, urinary/fecal incontinence, nausea, vomiting, any other complaint. Past Medical History - Provider Review Nursing Documentation Reviewed: Yes - Infectious Disease Hx of Infectious Diseases: None - Tetanus Immunization Tetanus Immunization: Unknown - Cardiac Hx Cardiac Disorders: No - Pulmonary Hx Respiratory Disorders: No - Neurological Hx Neurological Disorder: No - HEENT Hx HEENT Disorder: Yes Hx Cataracts: Yes (Hard of hearing.) - Renal Hx Renal Disorder: No - Endocrine/Metabolic Hx Endocrine Disorders: Yes Hx Diabetes Mellitus Type 2: Yes - Hematological/Oncological Hx Blood Disorders: No - Integumentary Hx Dermatological Disorder: No - Musculoskeletal/Rheumatological Hx Musculoskeletal Disorders: Yes Hx Arthritis: Yes (RA) - Gastrointestinal Hx Gastrointestinal Disorders: No - Genitourinary/Gynecological Hx Genitourinary Disorders: No - Psychiatric Hx Psychophysiologic Disorder: No Hx Substance Use: No - Surgical History Hx Cholecystectomy: Yes (1 year ago) Hx Musculoskeletal Surgery: Yes (right side hip replacement) Other/Comment: 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 - Anesthesia Hx Anesthesia: Yes Hx Anesthesia Reactions: No Hx Malignant Hyperthermia: No - Suicidal Assessment Feels Threatened In Home Enviroment: No Family/Social History - Physician Review Nursing Documentation Reviewed: Yes Family/Social History: Unknown Family HX Smoking Status: Never Smoked Hx Alcohol Use: No Hx Substance Use: No Hx Substance Use Treatment: No Allergies/Home Meds Allergies/Adverse Reactions: Allergies Penicillins Adverse Reaction (Verified 09/18/17 09:36) RASH Home Medications: Home Meds Medication Instructions Recorded Confirmed Metformin Hydrochloride [Metformin] 500 mg PO DAILY 03/31/12 09/18/17 Aspirin 81 mg PO DAILY 04/24/13 09/18/17 Leflunomide 20 mg PO DAILY 04/24/13 09/18/17 Review of Systems - Physician Review All systems were reviewed & negative as marked: Yes - Review of Systems Constitutional: Normal Eyes: Normal ENT: Normal Respiratory: Normal Cardiovascular: Normal Gastrointestinal: Normal Genitourinary Female: Normal Musculoskeletal: Arthralgias (B/L knees) Skin: Normal Neurological: Normal Endocrine: Normal Hemo/Lymphatic: Normal Psychiatric: Normal Physical Exam Vital Signs Reviewed: Yes Vital Signs Temp Pulse Resp BP Pulse Ox 08/25/18 16:51 98.2 F 98 H 18 166/70 H 98 Temperature: Afebrile Blood Pressure: Normal Pulse: Regular Respiratory Rate: Normal Appearance: Positive for: Well-Appearing, Non-Toxic, Comfortable Pain Distress: None Mental Status: Positive for: Alert and Oriented X 3 - Systems Exam Head: Present: Atraumatic, Normocephalic Pupils: Present: PERRL Extroacular Muscles: Present: EOMI Conjunctiva: Present: Normal Mouth: Present: Moist Mucous Membranes Neck: Present: Normal Range of Motion Respiratory/Chest: Present: Clear to Auscultation, Good Air Exchange. No: Res piratory Distress, Accessory Muscle Use Cardiovascular: Present: Regular Rate and Rhythm, Normal S1, S2. No: Murmurs Abdomen: No: Tenderness, Distention, Peritoneal Signs Back: Present: Normal Inspection Upper Extremity: Present: Normal Inspection. No: Cyanosis, Edema Lower Extremity: Present: NORMAL PULSES, Tenderness (B/L knee), Swelling (Left knee), Neurovascularly Intact. No: Edema, CALF TENDERNESS, Normal ROM (Limited on flexion secondary to pain), Temperature Abnormalties Neurological: Present: GCS=15, CN II-XII Intact, Speech Normal Skin: Present: Warm, Dry, Normal Color. No: Rashes Psychiatric: Present: Alert, Oriented x 3, Normal Insight, Normal Concentration Medical Decision Making ED Course and Treatment: 08/25/18 19:49 83yo female in ED for stated history. she was AAO x3 and neurologically intact in ED. Her pain was controlled in ED with medication. B/L knee xray IMPRESSION: Diffuse osseous demineralization. Degenerative changes. Tricompartmental narrowing evident bilaterally. Large left and small right suprapatellar joint effusions. EXAM: CT Head without Intravenous Contrast. Electronically signed on Aug 25, 2018 6:25:54 PM EST by: Federico Pruett M.D. IMPRESSION: No acute parenchymal abnormality. Mild periventricular white matter ischemic changes. Mild brain atrophy and mild ventricular dilatation. Clinical correlation advised. Pt lives by herself and unable to ambulate. She will be DC home for [id number] treatment and rehab. Labs CXR EKG Result and plan was DW both pt and the family members and they agreed. Case was DW Dr. Dukes who is covering Dr. garcia and she accepted pt for admission Case was endorsed to [facility] PAC to f/u with lab/CXR/EKG - RAD Interpretation Radiology Orders: 08/25/18 16:56 HEAD W/O CONTRAST [CT] Stat KNEE W PATELLA BILAT 3 VIEW [RAD] Stat - Medication Orders Current Medication Orders: Tramadol HCl (Ultram) 50 mg PO STAT STA Stop: 08/25/18 16:58 Disposition/Present on Arrival - Present on Arrival Any Indicators Present on Arrival: No History of DVT/PE: No History of Uncontrolled Diabetes: No Urinary Catheter: No History of Decub. Ulcer: No History Surgical Site Infection Following: None - Disposition Have Diagnosis and Disposition been Completed?: Yes Diagnosis: Inability to ambulate due to knee, Knee effusion, Knee sprain Disposition: HOSPITALIZED Disposition Time: 19:35 Patient Plan: Admission Patient Problems: Current Active Problems Problem Status Onset Inability to ambulate due to knee Acute Knee effusion Acute Knee sprain Acute Condition: [facility]IR Referrals: Kobe Edmondson MD [Primary Care Provider] - Follow up with primary Forms: [employer] (Nepali)
--- NOTE | 2018-08-25 18:14 | RAD ---
Date of service: 08/25/2018 PROCEDURE: Bilateral Knee Radiographs. HISTORY: b/l knee pain s/p trauma COMPARISON: Bilateral knee radiographs performed 08/06/18 FINDINGS: BONES: Right Knee: Osseous demineralization. Marked degenerative changes including tenting of the intercondylar notch. No acute displaced fracture identified. Left Knee: Osseous demineralization. Marked degenerative changes including tenting of the intercondylar notch. No acute displaced fracture identified. JOINTS: Right Knee: Tricompartmental joint space narrowing. Chondrocalcinosis. No dislocation. Left knee: Tricompartmental joint space narrowing. Chondrocalcinosis. No dislocation. SOFT TISSUES: Right Knee: Soft tissue swelling. No evidence of radiopaque foreign body. Left Knee: Soft tissue swelling. No evidence of radiopaque foreign body. Vascular calcifications. JOINT EFFUSION: Right Knee: Small suprapatellar joint effusion. Left Knee: Large suprapatellar joint effusion. OTHER FINDINGS: None. IMPRESSION: Diffuse osseous demineralization. Degenerative changes. Tricompartmental narrowing evident bilaterally. Large left and small right suprapatellar joint effusions.
[2018-08-25 20:06] LABS: BASO # 0.01 {null, K/mm3} (0.0-2.0); BASO % 0.2 % (0.0-3.0); EOS # 0.1 (0.0-0.7); EOS % 1.5 % (1.5-5.0); HEMOGLOBIN 11.3 g/dL (12.0-16.0); LYMPH # 1.7 (1.2-3.4); LYMPH % 28.1 % (22.0-35.0); MEAN CELL VOLUME 82.5 fl (80.0-105.0); MEAN CORPUSCULAR HEMOGLOBIN 26.7 pg (25.0-35.0); MEAN CORPUSCULAR HGB CONC 32.3 g/dl (31.0-37.0); MEAN PLATELET VOLUME 8.6 fl (7.0-11.0); MONO # 0.7 (0.1-0.6); MONO % 12.4 % (1.0-6.0); RBC 4.24 {null, 10^6/uL} (3.5-6.1); RED CELL DISTRIBUTION WIDTH 15.1 % (11.5-14.5)
[2018-08-25 20:17] LABS: INR 1.37; PARTIAL THROMBOPLASTIN TIME 31.9 Seconds (26.9-38.3); PROTHROMBIN TIME 15.2 SECONDS (9.4-12.5)
[2018-08-25 20:18] LABS: ALBUMIN 3.5 g/dL (3.0-4.8); ALT/SGPT 14 U/L (7-56); AST/SGOT 25 U/L (14-36); BLOOD UREA NITROGEN 12 mg/dL (7-21); CALCIUM 8.6 mg/dL (8.4-10.5); GFR NON-AFRICAN AMERICAN > 60
--- NOTE | 2018-08-26 09:25 | CT ---
Date of service: 08/25/2018 PROCEDURE: CT HEAD WITHOUT CONTRAST. HISTORY: s/p trauma COMPARISON: Noncontrast head CT performed 08/06/18 TECHNIQUE: Axial computed tomography images were obtained through the head/brain without intravenous contrast. Radiation dose: Total exam DLP = 891.04 mGy-cm. This CT exam was performed using one or more of the following dose reduction techniques: Automated exposure control, adjustment of the mA and/or kV according to patient size, and/or use of iterative reconstruction technique. FINDINGS: HEMORRHAGE: No intracranial hemorrhage. BRAIN: Diffuse atrophy with prominence of the ventricles and sulci noted. No mass effect or edema. Intracranial atherosclerosis. Chronic appearing lacunar infarct, right thalamus. Scattered periventricular and subcortical white matter hypodensities, which are nonspecific, but often seen with chronic microvascular ischemic disease. Please note that MRI with diffusion imaging is more sensitive in the detection of acute ischemic event. VENTRICLES: Ventricular prominence remains out of proportion to sulcal size and may be seen in the setting of NPH; correlate clinically for triad of dementia, ataxia, and incontinence. CALVARIUM: Unremarkable. PARANASAL SINUSES: Bone deformity without associated soft tissue swelling. Correlate clinically. Unremarkable as visualized. No significant inflammatory changes. MASTOID AIR CELLS: Unremarkable as visualized. No inflammatory changes. OTHER FINDINGS: Mild right nasal bone deformity without associated soft tissue swelling. IMPRESSION: Moderate nonspecific scattered white matter changes. Chronic appearing sub cm right thalamus. Generalized atrophy. Ventricular prominence remains out of proportion to sulcal size and may be seen in the setting of NPH; correlate clinically for triad of dementia, ataxia, and incontinence. Mild right nasal bone deformity without associated soft tissue swelling. Correlate clinically. Preliminary impression was provided by [employer]. Study marked for PA review.
[2018-08-26] MEDS ORDERED: Oxycodone/Acetaminophen 5/325 mg Tab PO SCH (09:45)
[2018-08-26] MEDS ORDERED: METFORMIN HYDROCHLORIDE 500 MG PO SCH (10:00)
[2018-08-26] MEDS ORDERED: Potassium Chloride 20 mEq ER Tab PO ONE ×2 (11:43→14:09)
[2018-08-26] MEDS ORDERED: Oxycodone/Acetaminophen 5/325 mg Tab PO PRN (11:46)
--- NOTE | 2018-08-26 12:24 | RAD ---
HISTORY: admission COMPARISON: Chest x-ray performed 09/18/17 TECHNIQUE: Chest, one view. FINDINGS: LUNGS: No focal consolidation. Please note that chest x-ray has limited sensitivity for the detection of pulmonary masses. PLEURA: No significant pleural effusion identified. No definite pneumothorax . CARDIOVASCULAR: Borderline cardiomegaly. Atherosclerotic calcifications the aorta. OSSEOUS STRUCTURES: Osseous demineralization. Degenerative changes. Acromioclavicular arthropathy. VISUALIZED UPPER ABDOMEN: Unremarkable. OTHER FINDINGS: None. IMPRESSION: Borderline cardiomegaly. No acute pulmonary pathology identified.
--- NOTE | 2018-08-26 16:36 | CARD ---
APPROVED REPORT Date of service: 08/25/2018 EKG Measurement Heart [id number] <Conclusion> Normal sinus rhythm Minimal voltage criteria for LVH, may be normal variant Inferior infarct, age undetermined Abnormal ECG
--- NOTE | 2018-08-26 20:29 | HP ---
DATE OF EXAM: 08/26/2018 HISTORY OF PRESENT ILLNESS: The patient is 83 years old, patient of Dr. Edmondson. She lives by herself. She has home health aide. According to patient, she does not do nothing for her. She does not want her to come back either. The patient has niece who lives 20 block from her home who is already taking care of her elderly mother. She states she visits her once in while, but she cannot be with her all the time. The patient has fallen multiple times and she has bruise on her right knee and complaining of pain in both knees, complaining of back pain. Denies any fever or chills. Complaining of decreased appetite. Complaining of feeling agitated at times. PAST MEDICAL HISTORY: Significant for; 1. Non-insulin dependent diabetes. 2. History of generalized osteoarthritis. 3. History of footdrop. 4. Bilateral knee osteoarthritis. 5. Difficulty walking. ALLERGIES: SHE IS ALLERGIC TO PENICILLIN. PAST SURGICAL HISTORY: Significant for; 1. Right hip replacement. 2. Status post cholecystectomy. MEDICATIONS AT HOME: She is on metformin, aspirin, and leflunomide. SOCIAL HISTORY: She lives alone and denies smoking, drinking, or alcohol use. FAMILY HISTORY: Not relevant. PHYSICAL EXAMINATION: GENERAL: She is awake and alert, able to communicate, hard of hearing. VITAL SIGNS: She is afebrile, pulse 80, respirations 16, and blood pressure 150/63. LUNGS: Bilateral fair air flow. No rhonchi or crackle. HEART: S1 and S2 audible. ABDOMEN: Soft and nontender. No rebound, no guarding. NEUROLOGIC: She is awake and alert, able to communicate, hard of hearing. EXTREMITIES: She has bilateral knee crepitus. Right knee cap, she has scabbed wound. She is able to move all the extremities. LABORATORY DATA: WBC is 6.0, hemoglobin 11.3, hematocrit 35, and platelets 351. PT 15.2 and INR 1.37. Chemistry; sodium 140, potassium 3.4, chloride 107, CO2 of 27, BUN 12, creatinine 0.6, and blood sugar of 142. She had EKG done that showed normal sinus rhythm. X-ray of the chest, borderline cardiomegaly. No pulmonary pathology noted. X-ray of the knee, right knee tricompartmental joint space narrowing with chondrocalcinosis and left knee tricompartmental joint space narrowing and chondrocalcinosis. CT scan of the head is unremarkable except moderate nonspecific scattered white matter changes. ASSESSMENT: 1. Deconditioning, difficulty walking. 2. Status post multiple falls. 3. Right knee contusion. 4. Severe bilateral knee osteoarthritis. 5. Hypertension. 6. Dementia. 7. Non-insulin dependent diabetes. PLAN: We will start the patient on analgesic, monitor her blood sugar. I will request Dr. Jurado to evaluate probably she will benefit from intraarticular steroid injection. Start her on physical therapy, and might benefit from subacute rehab. Shahnaz Dukes MD
[2018-08-26] MEDS: Insulin Lispro (humaLOG) MEDIUM Coverage SC SCH (22:53)
--- NOTE | 2018-08-27 07:12 | CP.PCM.PN ---
<Sandi Chase - Last Filed: 08/27/18 14:45> Subjective - Date & Time of Evaluation Date of Evaluation: 08/27/18 Time of Evaluation: 07:12 - Subjective Subjective: Sandi Chase, PGY2, Medicine Progress Note for Dr Zhong: Patient seen and examined at bedside. No acute events overnight. Patient reports mildly improved bilateral knee pain. This morning, patient received steroid injections in bilateral knee as per give by Ortho Dr Garcia. Patient reports that she has been having difficulty walking recently, reports mild cognitive difficulties as well. Denies urinary incontinence, fevers, chills, nausea, vomiting, dysuria, focal weakness. Objective - Vital Signs/Intake and Output Vital Signs (last 24 hours): Temp Pulse Resp BP Pulse Ox 97.6 F 100 H 16 154/82 H 95 08/26/18 22:00 08/26/18 22:00 08/26/18 22:00 08/26/18 22:00 08/26/18 22:00 - Medications Medications: Current Medications Aspirin (Ecotrin) 81 mg PO DAILY [facility] Last Admin: 08/26/18 10:26 Dose: 81 mg Insulin Human Lispro (Humalog Med) 0 units SC ACHS [facility]; Protocol Last Admin: 08/26/18 22:53 Dose: Not Given Metformin HCl (Glucophage) 500 mg PO DAILY [facility] Last Admin: 08/26/18 10:26 Dose: 500 mg Oxycodone/Acetaminophen (Percocet 5/325 Mg Tab) 1 tab PO Q6H PRN PRN Reason: Pain, severe (8-10) Stop: 08/29/18 09:46 Tramadol HCl (Ultram) 50 mg PO TID PRN PRN Reason: Pain, moderate (4-7) - Labs Labs: 08/25/18 20:03 08/25/18 20:03 PT 15.2 SECONDS (9.4-12.5) H 08/25/18 20:03 INR 1.37 08/25/18 20:03 APTT 31.9 Seconds (26.9-38.3) 08/25/18 20:03 - Constitutional Appears: Non-toxic, No Acute Distress - Head Exam Head Exam: ATRAUMATIC, NORMOCEPHALIC - Eye Exam Eye Exam: EOMI, PERRL. absent: Conjunctival injection, Nystagmus, Scleral icterus Pupil Exam: NORMAL ACCOMODATION, PERRL. absent: Irregular, Miosis, Mydriatic, Unequal - ENT Exam ENT Exam: Mucous Membranes Moist - Neck Exam Neck Exam: Full ROM - Respiratory Exam Respiratory Exam: Clear to Ausculation Bilateral, NORMAL BREATHING PATTERN. absent: Accessory Muscle Use, Chest Wall Tenderness, Wheezes, Respiratory Distress, Stridor - Cardiovascular Exam Cardiovascular Exam: RRR, +S1, +S2. absent: Murmur - GI/Abdominal Exam GI & Abdominal Exam: Soft, Normal Bowel Sounds. absent: Firm, Guarding, Rigid, Tenderness, Mass, Organomegaly - Extremities Exam Extremities Exam: Joint Swelling. absent: Calf Tenderness, Pedal Edema Additional comments: + mild swelling and effusions bilateral knees, left> right. + active ROM. - Back Exam Back Exam: NORMAL INSPECTION - Neurological Exam Neurological Exam: Alert, Awake, Oriented x3 - Psychiatric Exam Psychiatric exam: Normal Affect, Normal Mood - Skin Skin Exam: Dry, Normal Color, Warm Assessment and Plan - Assessment and Plan (Free Text) Assessment: 1. Difficulty walking, deconditioning 2. s/p multiple falls 3. HTN 4. Dementia 5. Diabetes mellitus, non-insulin dependent 6. S/p steroid injections in bilateral knees Will continue with pain management with tramadol and percocet prn. Ortho Dr ramey on board, appreciate help. Patient received bilateral knee injections, will monitor. Will discontinue metformin and start glimerpide for her diabetes. Will also start ISS low. Will give protonix and lovenox for GI and DVT prophylaxis, respectively. Physical therapy recommended TCU, will obtain TCU eval. Case reviewed and discussed with Dr Zhong. <Chapincito Zhong S - Last Filed: 08/27/18 17:27> Objective - Vital Signs/Intake and Output Vital Signs (last 24 hours): Temp Pulse Resp BP Pulse Ox 98 F 75 18 139/69 93 L 08/27/18 14:00 08/27/18 14:00 08/27/18 14:00 08/27/18 14:00 08/27/18 14:00 Intake and Output: 08/27/18 08/27/18 06:59 18:59 Intake Total 480 Balance 480 - Medications Medications: Current Medications Aspirin (Ecotrin) 81 mg PO DAILY [facility] Last Admin: 08/27/18 09:31 Dose: 81 mg Enoxaparin Sodium (Lovenox) 30 mg SC DAILY [facility]; Protocol Last Admin: 08/27/18 15:16 Dose: 30 mg Glimepiride (Amaryl) 2 mg PO DAILY [facility] Insulin Human Regular (Humulin R Low) 0 units SC ACHS [facility]; Protocol Last Admin: 08/27/18 17:22 Dose: 2 u Oxycodone/Acetaminophen (Percocet 5/325 Mg Tab) 1 tab PO Q6H PRN PRN Reason: Pain, severe (8-10) Stop: 08/29/18 09:46 Pantoprazole Sodium (Protonix Ec Tab) 20 mg PO 0600,1600 [facility] Last Admin: 08/27/18 17:21 Dose: 20 mg Tramadol HCl (Ultram) 50 mg PO TID PRN PRN Reason: Pain, moderate (4-7) Last Admin: 08/27/18 08:09 Dose: 50 mg - Labs Labs: 08/25/18 20:03 08/25/18 20:03 PT 15.2 SECONDS (9.4-12.5) H 08/25/18 20:03 INR 1.37 08/25/18 20:03 APTT 31.9 Seconds (26.9-38.3) 08/25/18 20:03 Assessment and Plan - Assessment and Plan (Free Text) Assessment: Pt seen and examined by me. I have reviewed the note of the medical typist and I agree with it. I have discussed the assessment and plan with the resident. I have reviewed the medications and the last labs.
[2018-08-27] MEDS ORDERED: Bupivacaine 0.5% Inj(30mL) IJ ONE (07:51)
[2018-08-27] MEDS ORDERED: MethylPREDNISolone Depo 40 mg/ml Inj IM ONE (07:51)
[2018-08-27] MEDS: Insulin Lispro (humaLOG) MEDIUM Coverage SC SCH (07:53)
[2018-08-27] MEDS ORDERED: Insulin Lispro (humaLOG) MEDIUM Coverage SC SCH (09:24)
[2018-08-27] MEDS: Enoxaparin 30 mg Syringe SC SCH (15:16)
[2018-08-27] MEDS: Pantoprazole 20 mg EC Tab PO SCH (17:21)
[2018-08-27] MEDS: Insulin Reg-LOW-Coverage SC SCH (17:22)
--- NOTE | 2018-08-27 19:22 | CON ---
DATE: 08/27/2018 ORTHOPEDIC CONSULTATION LOCATION: In Room 563, Bed 2. HISTORY OF PRESENT ILLNESS: An 83-year-old female who complains of bilateral knee pain to the point where she cannot walk. The knee pains are from decreased joint space mostly on the medial side with osteophytes. I called the family member. We discussed the treatment and felt as though giving a cortisone shot in both knees would help her ability to ambulate with a walker and I discouraged the use of a wheelchair because she is not needing one and if she does start using it, she will get weaker and weaker. So I am going to write for physical therapy to do strengthening exercise of lower limbs and do ambulation with a walker. By injecting both knees I hope she will feel better and can go home sooner. I thought I could see her in the office today. Hyalgan injections which last six months and they could be given to both knees also. But her arthritis appears to be controllable with conservative therapy because the risks of the surgery outweigh the benefits right now. FINAL DIAGNOSIS: Bilateral osteoarthritis of both knees equally the same. Anatoly Jurado DO
--- NOTE | 2018-08-27 21:36 | PN ---
DATE: 08/27/2018 SUBJECTIVE: The patient was seen and examined. I do agree with the note of the medical receptionist assistant. The patient has a difficulty time in ambulating. She has gait instability. She states that this has been a recent onset. She had a fall and states that she injured her knees. She was seen by Dr. Jurado from Orthopedics and had her knees injected. A CAT scan was reviewed and showed dilated ventricles. I am going to get Neurology to evaluate for normal pressure hydrocephalus. The patient does not have incontinence. The patient is going to have her metformin on hold in case she needs contrast. She is going to be on Amaryl for her diabetes. She is going to continue with aspirin. She is on Lovenox for DVT prophylaxis. The patient is on Percocet for pain. She is on a heart healthy diet. She is also going to get physical therapy. I will get a TCU evaluation as well. Chapincito Zhong MD
[2018-08-28] MEDS: Insulin Reg-LOW-Coverage SC SCH ×5 (04:35→16:51)
[2018-08-28] MEDS: Pantoprazole 20 mg EC Tab PO SCH ×2 (05:50→16:56)
[2018-08-28 08:30] VITALS: BP 186/76; PULSE 57; RESP 16; TEMP 98.2; O2SAT 97
--- NOTE | 2018-08-28 09:39 | CP.PCM.DIS ---
Provider - Provider Date of Admission: 08/25/18 19:42 Attending physician: Chapincito Zhong MD Primary care physician: Kobe Edmondson MD Consults: 08/26/18 17:12 Consult [Physician Consult] Routine Comment: Consulting Provider: Anatoly Jurado Consulting Physician: Anatoly Jurado Reason for Consult: knee OA Additional Comments: 08/27/18 08:41 TCU [Evaluation for TRCU] Routine Comment: Physician Instructions: Reason For Exam: rehab 08/27/18 14:41 Neurology Consult Routine Comment: Consulting Provider: Jeovany Layne Consulting Physician: Jeovany Layne Reason for Consult: difficulty walking, cognition abnormalities - NPH? Time Spent in preparation of Discharge (in minutes): 60 Hospital Course - Lab Results Lab Results: Most Recent Lab Values WBC 6.0 10^3/uL (4.5-11.0) 08/25/18 20:03 RBC 4.24 10^6/uL (3.5-6.1) 08/25/18 20:03 Hgb 11.3 g/dL (12.0-16.0) L 08/25/18 20:03 Hct 35.0 % (36.0-48.0) L 08/25/18 20:03 MCV 82.5 fl (80.0-105.0) 08/25/18 20:03 MCH 26.7 pg (25.0-35.0) 08/25/18 20:03 MCHC 32.3 g/dl (31.0-37.0) 08/25/18 20:03 RDW 15.1 % (11.5-14.5) H 08/25/18 20:03 Plt Count 351 10^3/uL (120.0-450.0) 08/25/18 20:03 MPV 8.6 fl (7.0-11.0) 08/25/18 20:03 Neut % (Auto) 57.8 % (50.0-68.0) 08/25/18 20:03 Lymph % (Auto) 28.1 % (22.0-35.0) 08/25/18 20:03 Greer % (Auto) 12.4 % (1.0-6.0) H 08/25/18 20:03 Eos % (Auto) 1.5 % (1.5-5.0) 08/25/18 20:03 Baso % (Auto) 0.2 % (0.0-3.0) 08/25/18 20:03 Lymph # (Auto) 1.7 (1.2-3.4) 08/25/18 20:03 Greer # (Auto) 0.7 (0.1-0.6) H 08/25/18 20:03 Eos # (Auto) 0.1 (0.0-0.7) 08/25/18 20:03 Baso # (Auto) 0.01 K/mm3 (0.0-2.0) 08/25/18 20:03 Absolute Neuts (auto) 3.44 (1.4-6.5) 08/25/18 20:03 PT 15.2 SECONDS (9.4-12.5) H 08/25/18 20:03 INR 1.37 08/25/18 20:03 APTT 31.9 Seconds (26.9-38.3) 08/25/18 20:03 Sodium 140 mmol/L (132-148) 08/25/18 20:03 Potassium 3.4 mmol/L (3.6-5.0) L 08/25/18 20:03 Chloride 107 mmol/L (98-107) 08/25/18 20:03 Carbon Dioxide 27 mmol/L (21-33) 08/25/18 20:03 Anion Gap 10 (10-20) 08/25/18 20:03 BUN 12 mg/dL (7-21) 08/25/18 20:03 Creatinine 0.6 mg/dl (0.7-1.2) L 08/25/18 20:03 Est GFR ( Amer) > 60 08/25/18 20:03 Est GFR (Non-Af Amer) > 60 08/25/18 20:03 POC Glucose (mg/dL) 190 mg/dL (65-110) H 08/28/18 06:37 Random Glucose 112 mg/dL (70-110) H 08/25/18 20:03 Calcium 8.6 mg/dL (8.4-10.5) 08/25/18 20:03 Total Bilirubin 0.6 mg/dL (0.2-1.3) 08/25/18 20:03 AST 25 U/L (14-36) 08/25/18 20:03 ALT 14 U/L (7-56) 08/25/18 20:03 Alkaline Phosphatase 72 U/L (38-126) 08/25/18 20:03 Total Creatine Kinase 44 U/L (35-230) 08/25/18 20:03 Total Protein 7.1 g/dL (5.8-8.3) 08/25/18 20:03 Albumin 3.5 g/dL (3.0-4.8) 08/25/18 20:03 Globulin 3.5 gm/dL 08/25/18 20:03 Albumin/Globulin Ratio 1.0 (1.1-1.8) L 08/25/18 20:03 Discharge Exam - Head Exam Head Exam: ATRAUMATIC, NORMOCEPHALIC Discharge Plan - Follow Up Plan Condition: FAIR Disposition: REHAB FACILITY/REHAB UNIT Instructions: Smoking: Not Just Harmful to Your Lungs and Heart, Knee Pain (DC), Weakness (GEN) Additional Instructions: You are being discharged to TCU where you will continue all medication and physical therapy. Referrals: Kobe Edmondson MD [Primary Care Provider] -
[2018-08-28] MEDS: Enoxaparin 30 mg Syringe SC SCH (10:34)
--- NOTE | 2018-08-28 14:33 | CP.PCM.PN ---
<Sandi Chase - Last Filed: 08/28/18 15:05> Subjective - Date & Time of Evaluation Date of Evaluation: 08/28/18 Time of Evaluation: 14:27 - Subjective Subjective: Sandi Chase, PGY2, Medicine Progress Note for Dr Zhong: Patient seen and examined at bedside. No acute events overnight. Patient reports much improved bilateral knee pain. Patient denies fevers, chills, nausea, vomiting, dysuria, focal weakness. In the morning, patient amenable to go to TCU when accepted today, for rehab. However, this afternoon, patient was seen out of her room, screaming, crying, saying that she "does not want any more pictures." Patient was agitated from the Avasys system in her room. Patient was combative, saying that she wants to go home, thinking that the IV pump was a "camera used to record her." Patient refused to go back to her room. Psychiatry called urgently, recommended switching off Avasys, starting prn seroquel and geodon. Objective - Vital Signs/Intake and Output Vital Signs (last 24 hours): Temp Pulse Resp BP Pulse Ox 98.2 F 57 L 16 186/76 H 97 08/28/18 06:00 08/28/18 06:00 08/28/18 06:00 08/28/18 06:00 08/28/18 06:00 Intake and Output: 08/28/18 08/28/18 06:59 18:59 Intake Total 120 Balance 120 - Medications Medications: Current Medications Aspirin (Ecotrin) 81 mg PO DAILY [facility] Last Admin: 08/28/18 10:34 Dose: 81 mg Enoxaparin Sodium (Lovenox) 30 mg SC DAILY [facility]; Protocol Last Admin: 08/28/18 10:34 Dose: 30 mg Glimepiride (Amaryl) 4 mg PO DAILY [facility] Insulin Human Regular (Humulin R Low) 0 units SC [facility]; Protocol Last Admin: 08/28/18 08:16 Dose: Not Given Pantoprazole Sodium (Protonix Ec Tab) 20 mg PO 0600,1600 [facility] Last Admin: 08/28/18 05:50 Dose: 20 mg Tramadol HCl (Ultram) 50 mg PO TID PRN PRN Reason: Pain, moderate (4-7) Last Admin: 08/27/18 08:09 Dose: 50 mg - Labs Labs: 08/25/18 20:03 08/25/18 20:03 PT 15.2 SECONDS (9.4-12.5) H 08/25/18 20:03 INR 1.37 08/25/18 20:03 APTT 31.9 Seconds (26.9-38.3) 08/25/18 20:03 - Additional Findings Additional findings: - Constitutional Appears: Combative. Agitated. - Head Exam Head Exam: ATRAUMATIC, NORMOCEPHALIC - Eye Exam Eye Exam: EOMI, PERRL. absent: Conjunctival injection, Nystagmus, Scleral icterus Pupil Exam: NORMAL ACCOMODATION, PERRL. absent: Irregular, Miosis, Mydriatic, Unequal - ENT Exam ENT Exam: Mucous Membranes Moist - Neck Exam Neck Exam: Full ROM - Respiratory Exam Respiratory Exam: Clear to Ausculation Bilateral, NORMAL BREATHING PATTERN. absent: Accessory Muscle Use, Chest Wall Tenderness, Wheezes, Respiratory Distress, Stridor - Cardiovascular Exam Cardiovascular Exam: RRR, +S1, +S2. absent: Murmur - GI/Abdominal Exam GI & Abdominal Exam: Soft, Normal Bowel Sounds. absent: Firm, Guarding, Rigid, Tenderness, Mass, Organomegaly - Extremities Exam Extremities Exam: Joint Swelling. absent: Calf Tenderness, Pedal Edema Additional comments: + mild swelling and effusions bilateral knees, left> right. + active ROM. - Back Exam Back Exam: NORMAL INSPECTION - Neurological Exam Neurological Exam: Alert, Awake, Oriented x3. + paranoid delusions - Psychiatric Exam Psychiatric exam: Normal Affect, Normal Mood - Skin Skin Exam: Dry, Normal Color, Warm Assessment and Plan - Assessment and Plan (Free Text) Assessment: 1. Difficulty walking, deconditioning 2. s/p multiple falls 3. HTN 4. Dementia 5. Diabetes mellitus, non-insulin dependent 6. S/p steroid injections in bilateral knees 7. Acute agitation Psychiatry consulted for agitation, started on seroquel hs prn and geodon prn. Discontinued percocet for pain. Will hold tramadol as well. Ortho Dr ramey on board, appreciate help. BG [phone], will increase amaryl to 4 mg and continue ISS. Continue protonix and lovenox for GI and DVT prophylaxis, respectively. Physical therapy recommended TCU, patient accepted to TCU. Will reassess agitation/mental status in AM. If patient is amenable, will discharge patient to TCU for further rehab. I spoke to patient's niece, updated her about patient's agitation and further plan. She states that patient has become agitated prior, however, not to this extent. Niece agrees with further plan. Case reviewed and discussed with Dr Zhong. <Chapincito Zhong - Last Filed: 08/28/18 17:03> Objective - Vital Signs/Intake and Output Vital Signs (last 24 hours): Temp Pulse Resp BP Pulse Ox 98.2 F 57 L 16 186/76 H 97 08/28/18 06:00 08/28/18 06:00 08/28/18 06:00 08/28/18 06:00 08/28/18 06:00 Intake and Output: 08/28/18 08/28/18 06:59 18:59 Intake Total 120 480 Balance 120 480 - Medications Medications: Current Medications Aspirin (Ecotrin) 81 mg PO DAILY [facility] Last Admin: 08/28/18 10:34 Dose: 81 mg Enoxaparin Sodium (Lovenox) 30 mg SC DAILY [facility]; Protocol Last Admin: 08/28/18 10:34 Dose: 30 mg Glimepiride (Amaryl) 4 mg PO DAILY [facility] Last Admin: 08/28/18 16:56 Dose: 4 mg Insulin Human Regular (Humulin R Low) 0 units SC ACHS [facility]; Protocol Last Admin: 08/28/18 16:51 Dose: Not Given Pantoprazole Sodium (Protonix Ec Tab) 20 mg PO 0600,1600 [facility] Last Admin: 08/28/18 16:56 Dose: 20 mg Quetiapine Fumarate (Seroquel) 12.5 mg PO HS PRN; Protocol PRN Reason: Agitation Tramadol HCl (Ultram) 50 mg PO TID PRN PRN Reason: Pain, moderate (4-7) Last Admin: 08/27/18 08:09 Dose: 50 mg Ziprasidone (Geodon Inj) 10 mg IM Q12 PRN; Protocol PRN Reason: Agitation - Labs Labs: 08/25/18 20:03 08/25/18 20:03 PT 15.2 SECONDS (9.4-12.5) H 08/25/18 20:03 INR 1.37 08/25/18 20:03 APTT 31.9 Seconds (26.9-38.3) 08/25/18 20:03 Assessment and Plan - Assessment and Plan (Free Text) Assessment: Pt seen and examined by me. I have reviewed the note of the medical radiation tech and I agree with it. I have discussed the assessment and plan with the resident. I have reviewed the medications and the last labs.
--- NOTE | 2018-08-28 14:50 | CP.PCM.PCO ---
Addendum Addendum: 08/28/18 14:51 Patient is an 83 F with history of NIDDM, osteoarthritis, and gait instability who is currently hospitalized for further evaluation of gait instability and possible evaluation for rehab. Psych was consulted due to patient refusing to cooperate with her physician and nurses. As per patient, she refused to stay in her room due to "camera taking photos of her."As per PCP patient was seen standing and due to her history of falls she decided to place the AvaSys telemonitor in the room to alert when patient gets up from the bed. Avasys monitor then began to introduce itself to the patient which caused the patient to be more paranoid since she has never encountered this before. Plan: D/t patient's behavior disrupting treatment plan, patient needs to be medicated PRN. -Geodon 10 mg IM q12h PRN -Seroquel 12.5 mg PO qHS PRN -1:1 if necessary, currently patient is calm and has returned to room since AvaSys was removed so 1:1 is not necessary at the moment, however consider if patient becomes uncooperative
--- NOTE | 2018-08-28 17:30 | CON ---
DATE: 08/28/2018 HISTORY OF PRESENT ILLNESS: In short, the patient is 83 years old female with not known previous psychiatric history. The patient was admitted on the medical site status post fall. Psych consult was initiated today for evaluation of acute change in mental status and paranoia. The patient was seen earlier by chief medical technologist, who rotates with this staff writer. The patient presented to be paranoid, guarded, was refusing to go back to her room feeling that people are talking about her and this event was related to the fact that the patient was started on observation for risk of falls. The patient was feeling that people are talking about her and refused to go back to her room. The patient was seen later on. The patient presented to be calm, but confused. The patient thinks that right now is 08/23/1990. The patient is not surprised when this staff writer brought to her attention that now is 2018. The patient obviously presented to be guarded, was looking to the hallway who was there and appears to be paranoid. Besides that, the patient denied hearing voices. The patient denied any thoughts of harming herself or others. As per collateral information from the nursing staff, the patient got injection earlier for her both knees by Dr. Jurado. The patient was on Percocet as well as tramadol, which could influence on the patient's presentation. As per history, the patient never been in delirium stage before and never been on any psychotropic medications before. The patient denied history of being admitted. Denied history of suicidal attempts. LABORATORY DATA: Labs reviewed. VITAL SIGNS: Vital signs reviewed. The patient is in the process of transfer to Transitional Care Unit. The patient is aware of that plan, agreed to go there only if the patient needs show up. MENTAL STATUS EXAMINATION: The patient presented to be alert, somewhat confused, intense eye contact, loud voice. Thought process seems to be circumstantial, tangential. Thought content, the patient denied hallucinations, but obviously the patient appears to be delirious, paranoid, and guarded. Insight and judgment seems to be limited. Impulses are unpredictable. IMPRESSION: Obviously, the patient is in delirium side, stage most likely it is related to the pain medication and medical issues. PLAN: Geodon 10 mg twice a day as needed IM for acute agitation, Seroquel 12.5 mg at the nighttime as needed for psychosis and restless and agitated behavior if the patient is willing to take medication by mouth. We will follow up and advise accordingly. One-to-one observation recommended. Should you have any questions give me a call back. Bailey Moser MD
--- NOTE | 2018-08-28 18:05 | CON ---
DATE: 08/28/2018 HISTORY OF PRESENT ILLNESS: This is an 83-year-old female with past medical history of diabetes, history of foot drop and arthritis, difficulty ambulating. The patient states that she had 2 falls and the CAT scan did not show any bleed, but also complained of pain in both knees and back pain. PAST MEDICAL HISTORY: Diabetes, arthritis, foot drop, difficulty ambulating. ALLERGIES: PENICILLIN. PAST SURGICAL HISTORY: Significant for right hip replacement and status post cholecystectomy. PHYSICAL EXAMINATION HEENT: Normocephalic, atraumatic. NECK: Supple. NEUROLOGIC: Awake, oriented to self. Cranial nerves II to XII were tested. Pupils reactive. EOM intact. Visual field full. No facial asymmetry. Tongue midline. Motor examination, moves upper extremities 5/5. Tone normal. Deep tendon reflexes 1+. Both plantars are downgoing and also weakness of the lower extremities causing difficulty ambulating. IMPRESSION AND PLAN: The patient also has right knee abrasion from the last fall and contusion of the right knee. Also hypertension and dementia. Continue physical therapy. CAT scan of the head suggestive of normal pressure hydrocephalus. We will follow up. Jayme Layne MD
--- NOTE | 2018-08-28 22:04 | PN ---
DATE: 08/28/2018 SUBJECTIVE: The patient was seen and examined. I do agree with the note of the internist medical doctor md. The patient's plan of care was discussed with the resident. She is having difficulty walking. She has multiple falls. The patient is interested in going to the Transitional Care Unit. The patient's niece was updated. The patient has diabetes type 2 and is on insulin sliding scale with fingerstick coverage. She was given injection in the bilateral knees. She had an episode of delirium with agitation. I did speak to the resident, who evaluated the patient. She will be given medications to help her with her agitation. Chapincito Zhong MD
== END 2018-08-28 17:22 | DRG 554 ==
LOC: ED 16:26 → ERH 19:42 → 5RNO 21:20
PROVIDERS: ADMIT Internal Medicine Nephrology; ATTEND Internal Medicine Nephrology
PROC: 3E0U33Z Introduction of Anti-inflammatory into Joints, Percutaneous Approach (ICD-10-PCS; principal; 2018-08-27)
PROC: 3E0U3BZ Introduction of Anesthetic Agent into Joints, Percutaneous Approach (ICD-10-PCS; 2018-08-27)
DX: M17.0 Bilateral primary osteoarthritis of knee (principal); S80.01XA Contusion of right knee, initial encounter; E11.9 Type 2 diabetes mellitus without complications; M54.9 Dorsalgia, unspecified; I10 Essential (primary) hypertension; F03.90 Unspecified dementia, unspecified severity, without behavioral disturbance, psychotic disturbance, mood disturbance, and anxiety; R29.6 Repeated falls; H91.90 Unspecified hearing loss, unspecified ear; Z91.81 History of falling; W19.XXXA Unspecified fall, initial encounter; Z79.84 Long term (current) use of oral hypoglycemic drugs; Z96.641 Presence of right artificial hip joint

== ENCOUNTER 2018-08-28 17:28 | Inpatient (IN) | payer OTHER ==
[2018-08-28 17:47] VITALS: BMI 25.1
[2018-08-28] MEDS ORDERED: Insulin Reg-LOW-Coverage SC SCH (22:00)
--- NOTE | 2018-08-28 22:19 | CP.PCM.PN ---
<BobbyLucie - Last Filed: 08/29/18 02:43> Subjective - Date & Time of Evaluation Date of Evaluation: 08/28/18 Time of Evaluation: 23:09 - Subjective Subjective: Code [place] called. patient is confused and agitated. Patient does not believe she is in the hospital but is oriented to self. Patient is also states that the staff is trying to poison her and is refusing medications. Objective - Medications Medications: Current Medications Aspirin (Ecotrin) 81 mg PO 0800 [facility]; Protocol Enoxaparin Sodium (Lovenox) 30 mg SC 0600 [facility]; Protocol Glimepiride (Amaryl) 4 mg PO DAILY [facility]; Protocol Insulin Human Regular (Humulin R Low) 0 units SC ACHS [facility]; Protocol Pantoprazole Sodium (Protonix Ec Tab) 20 mg PO 0600,1600 [facility]; Protocol Tramadol HCl (Ultram) 50 mg PO TID PRN; Protocol PRN Reason: Pain, moderate (4-7) - Additional Findings Additional findings: unable to exam, patient is agitated Assessment and Plan - Assessment and Plan (Free Text) Assessment: 83 F with history of NIDDM, osteoarthritis, and gait instability who is in the TCU for gait instability. Patient was seen by psych before transfer to TCU they recommended Geodon 10 mg IM q12h PRN and seroquel 12.5 mg PO qHS PRN, however patient is refusing medications. Nurse attempted to verbally calm patient however she continues to be agitated. Unable to be placed on 1:1. Family was called, they care unable to come to the hospital. Primary attending called. Patient will go to ED for psych evaluation. <Ana Shahid - Last Filed: 08/29/18 05:29> Objective - Vital Signs/Intake and Output Vital Signs (last 24 hours): Temp Pulse Resp BP Pulse Ox 97.3 F L 69 18 160/80 H 08/28/18 23:06 08/28/18 23:06 08/28/18 23:06 08/28/18 23:06 Attending/Attestation - Attestation I have personally seen and examined this patient.: Yes I have fully participated in the care of the patient.: No I have reviewed all pertinent clinical information, including history, physical exam and plan: Yes Notes (Text): 08/29/18 05:26 Pt seen by me after she was sent to the medical floor from the ER.She had just received Geodon. She was calm and co operative and in no clinical distress.
[2018-08-28 23:21] VITALS: BP 160/80; PULSE 69; RESP 18; TEMP 97.3
[2018-08-28] MEDS ORDERED: Pneumococcal 23-Valent Vaccine IM ONE (23:21)
[2018-08-28] MEDS ORDERED: Influenza Vaccine 60 mcg/0.5 mL SYR (4YR UP) IM ONE (23:21)
[2018-08-29] MEDS ORDERED: Pantoprazole 20 mg EC Tab PO SCH (06:00)
[2018-08-29] MEDS ORDERED: Enoxaparin 30 mg Syringe SC SCH (06:00)
== END 2018-08-28 22:15 | disposition short-term general hospital (02) | DRG 554 ==
LOC: TRCU 17:28
PROVIDERS: ADMIT Internal Medicine Nephrology; ATTEND Internal Medicine Nephrology
DX: M17.0 Bilateral primary osteoarthritis of knee (principal); R26.2 Difficulty in walking, not elsewhere classified; E11.9 Type 2 diabetes mellitus without complications; Z79.84 Long term (current) use of oral hypoglycemic drugs

== ENCOUNTER 2018-08-28 22:17 | Inpatient (IN) | payer MEDICARE, OTHER | END 2018-09-03 15:11 | disposition skilled nursing facility (03) | DRG 57 | LOC: ERH 08-29 01:17 → ED 22:17 → ERH 08-29 02:03 → 5RNO 08-29 03:56 | DX: G30.9 Alzheimer's disease, unspecified (principal); F02.81 Dementia in other diseases classified elsewhere, unspecified severity, with behavioral disturbance; R44.3 Hallucinations, unspecified; E11.649 Type 2 diabetes mellitus with hypoglycemia without coma; R29.6 Repeated falls; I10 Essential (primary) hypertension; F32.9 Major depressive disorder, single episode, unspecified; M06.9 Rheumatoid arthritis, unspecified; M17.0 Bilateral primary osteoarthritis of knee; Z79.82 Long term (current) use of aspirin; Z79.84 Long term (current) use of oral hypoglycemic drugs; Z91.81 History of falling; Z96.641 Presence of right artificial hip joint ==